=== PATIENT | female | born 1955 | race Caucasian/White ===

== ENCOUNTER 2016-10-05 18:32 | Inpatient (IN) | END 2016-10-19 19:40 | disposition home health service (06) | DRG 854 | DX: A41.9 Sepsis, unspecified organism (principal); Z68.43 Body mass index [BMI] 50.0-59.9, adult; N17.9 Acute kidney failure, unspecified; D69.6 Thrombocytopenia, unspecified; E66.01 Morbid (severe) obesity due to excess calories; J44.9 Chronic obstructive pulmonary disease, unspecified; N76.89 Other specified inflammation of vagina and vulva; E11.9 Type 2 diabetes mellitus without complications; I10 Essential (primary) hypertension; Z88.0 Allergy status to penicillin; N64.4 Mastodynia ==

== ENCOUNTER 2016-10-24 15:22 | Inpatient (IN) | payer OTHER ==
[~2016-10-24] VITALS: Ht 157.5 cm; Wt 138.2 kg
[~2016-10-24 15:22] MED LIST: ASPI-664 PO; DAK125 IRR; DOCU-144 PO; ERTA1VIA IV; ESOM40CA PO; FAMO20TA18 PO; LACTINEX PO; LORA-444 PO; LOSA25TA2 PO; METF500T4 PO; MULTI PO; ORPH100T PO; OXYC-284 PO; SENN-53 PO; VANC1.257 IV; Vancomycin Iv Per Pharmacy XX; ZINC220C5 PO
[2016-10-24] MEDS ORDERED: morphine 4 MG/ML VIAL IV STA (16:25)
[2016-10-24] MEDS ORDERED: ONDANSETRON 4 MG INJ IV STA (16:25)
[2016-10-24] MEDS ORDERED: VANCOMYCIN 1 GM (PMX) 250 ML IVPB ONE (16:30)
[2016-10-24] MEDS ORDERED: ERTAPENEM SODIUM 1 GM in SOD CHLORIDE 0.9% 100 ML IVPB ONE (16:30)
[2016-10-24 16:34] LABS: BASOPHILS % 0.3 % (0.0-2.0); EOSINOPHILS # 0.4 10^3/ul (0.0-0.5); EOSINOPHILS % 6.2 % (0.0-7.0); HEMATOCRIT 28.8 % (37.0-47.0); HEMOGLOBIN 9.9 g/dl (12.0-16.0); LYMPHOCYTES # 1.2 10^3/ul (0.8-2.9); LYMPHOCYTES % 21.4 % (15.0-51.0); MEAN CORPUSCULAR HEMOGLOBIN 29.6 pg (29.0-33.0); MEAN CORPUSCULAR HGB CONC 34.5 g/dl (32.0-37.0); MEAN CORPUSCULAR VOLUME 85.9 fl (82.0-101.0); MEAN PLATELET VOLUME 7.4 fl (7.4-10.4); MONOCYTE # 0.4 10^3/ul (0.3-0.9); NEUTROPHIL # 3.8 10^3/ul (1.6-7.5); NEUTROPHILS % 65.1 % (39.0-77.0); PLATELET COUNT 94 10^3/UL (140-440); RED BLOOD COUNT 3.35 10^6/ul (4.20-5.40); RED CELL DISTRIBUTION WIDTH 16.4 % (11.5-14.5); UNCORRECTED WBC 5.8 10^3/ul (4.8-10.8); WHITE BLOOD COUNT 5.8 10^3/ul (4.8-10.8)
--- NOTE | 2016-10-24 16:37 | RADRPT ---
PROCEDURE: Chest x-ray CLINICAL INDICATION: Shortness of breath TECHNIQUE: Chest single view COMPARISON: 10/14/2016 FINDINGS: The heart is normal in size. The pulmonary vessels are normal in caliber. The lungs are clear. Th e costophrenic angles are sharp. The visualized bony thorax is unremarkable. As before there is lef t arm PICC line with tip in the SVC. IMPRESSION: No acute cardiopulmonary disease. Left arm PICC line RPTAT: HH .Lalit Scales MD, Date Time Electronically viewed and signed by .Lalit Scales MD, on 10/24/2016 16:36 .W/
[2016-10-24 16:39] LABS: CONDITION 1; LH ANALYZER COMMENTS 1
[2016-10-24 16:42] LABS: ALBUMIN 2.8 g/dl (3.3-4.9)
[2016-10-24 16:43] LABS: INR 1.19; PROTIME 15.2 Sec (12.2-14.2); PT RATIO 1.2
[2016-10-24 16:44] LABS: PARTIAL THROMBOPLASTIN TIME 33.8 Sec (25.0-35.0)
[2016-10-24 16:45] LABS: ALBUMIN/GLOBULIN RATIO 0.7; BILIRUBIN,INDIRECT 0.3 mg/dl (0-1.1); BILIRUBIN,TOTAL 0.3 mg/dl (0.2-1.3); CREATININE 0.48 mg/dl (0.44-1.00); TOTAL PROTEIN 6.8 g/dl (6.1-8.1)
[2016-10-24 16:46] LABS: CALCIUM 8.5 mg/dl (8.4-10.2)
[2016-10-24 16:50] LABS: ADD UMIC YES; URINE BILIRUBIN (Dip) NEGATIVE (NEGATIVE); URINE BLOOD (Dip) 3+ (NEGATIVE); URINE COLOR YELLOW (YELLOW); URINE GLUCOSE (Dip) NEGATIVE (NEGATIVE); URINE KETONES (Dip) TRACE (NEGATIVE); URINE LEUKOCYTE ESTERASE (Dip) 1+ (NEGATIVE); URINE NITRITE (Dip) NEGATIVE (NEGATIVE); URINE TOTAL PROTEIN (Dip) 2+ (NEGATIVE); URINE UROBILINOGEN (Dip) 1.0 E.U./dL (0.1-1.0)
[2016-10-24 17:06] LABS: SQUAMOUS EPITHELIAL CELL,UR RARE; URINE RBCS >50 /HPF (0)
--- NOTE | 2016-10-24 17:14 | ERA ---
ER Documentation Chief Complaint Date/Time DATE: 10/24/16 TIME: 17:06 Chief Complaint left buttocks wound check, draining and painful. no recent fevers. HPI This is a 61-year-old female with a known history of hypertension, diabetes mellitus type 2 any recent history of Damián's gangrene of the left perineum that required incision and drainage with extensive debridement performed on October 06, 2016 at [facility]. The patient had been discharged on October 20, 2016 and transferred to [facility] for rehabilitation. The patient has a PICC line in place and had been receiving vancomycin and Invanz. The patient stated she became very upset with the [facility] and [facility] and therefore signed AMA 48 hours prior to arrival. She states she has not received any antibiotics since that time. She has had an indwelling catheter in place which she states has not been changed since her discharge from [facility]. She stated she has noticed very foul-smelling urine present in her catheter bag. She states he had no shortness of breath at rest or exertion. She is complaining of mild calf tenderness but stated she did not notice any swelling. Her sister indicates that she noticed some pustular drainage from the surgical incision site. She is also complaining of pain over the surgical incision site and no analgesic medication has been taken prior to arrival. ROS All systems reviewed and are negative except as per history of present illness. Medications Home Meds Active Scripts Aspirin* (Aspirin* EC) 81 Mg Tablet.dr, 81 MG PO DAILY for 30 Days, TAB Prov:EMELY THORNTON. 10/19/16 Zinc Sulfate* (Zinc Sulfate*) 220 Mg Cap, 220 MG PO DAILY for 30 Days, CAP Prov:EMELY THORNTON. 10/19/16 Multivitamins* (Theragran*) 1 Tab Tab, 1 TAB PO DAILY for 30 Days, TAB 1 Refill Prov:EMELY THORNTON. 10/19/16 Lactobacillus Acidophilus* (Lactinex*) 1 Tab Chew, 1 TAB PO BID for 30 Days, TAB Prov:EMELY THORNTON. 10/19/16 Docusate Sodium* (Colace*) 100 Mg Capsule, 100 MG PO Q12 for 30 Days, CAP Prov:EMELY THORNTON. 10/19/16 Famotidine* (Famotidine*) 20 Mg Tablet, 20 MG PO BID for 30 Days, TAB Prov:EMELY THORNTON. 10/19/16 Losartan Potassium* (Cozaar*) 25 Mg Tablet, 25 MG PO DAILY for 30 Days, TAB 1 Refill Prov:EMELY THORNTON. 10/19/16 Sennosides* (Senna Lax*) 8.6 Mg Tablet, 2 TAB PO BID for 30 Days, TAB 1 Refill Prov:EMELY THORNTON. 10/19/16 Reported Medications Metformin* (Glucophage*) 500 Mg Tab, 500 MG PO BID, TAB 03/21/15 Lorazepam* (Ativan*) 2 Mg Tablet, 2 MG PO BID Y for ANXIETY, TAB 03/21/15 Esomeprazole Mag Trihydrate (Nexium) 40 Mg Capsule.dr, 40 MG PO DAILY, CAP 03/21/15 Discontinued Reported Medications Oxycodone Hcl-Acetaminophen* (Percocet*) 10-325 Mg Tablet, 1 TAB PO Q4H Y for PAIN, TAB 03/21/15 Azithromycin* (Azithromycin*) 250 Mg Tablet, 250 MG PO DAILY, #4 TAB 03/21/15 Discontinued Scripts Ertapenem Sodium (Invanz) 1 Gm Vial.port, 1 GM IV DAILY for 29 Days Prov:EMELY THORNTON. 10/19/16 Vancomycin/0.9 % Sod Chloride (Vanco 1.25 gm/250 ml-0.9% NaCl) 1.25 Gm/250 Ml Plast..bag, 1.25 GM IV Q12H for 29 Days Prov:EMELY THORNTONSugar 10/19/16 Sodium Hypochlorite (Dakin's (1/4 Strength)) 473 Ml Irrig.soln, 1 APPLIC IRR DAILY for 30 Days Prov:EMELY THORNTONSugar 10/19/16 [Vancomycin Iv Per Pharmacy] 1 EA EACH No Conflict Check, 0 EA XX .PER PROTOCOL for 29 Days Prov:EMELY THORNTON. 10/19/16 Orphenadrine Citrate (Norflex) 100 Mg Tablet.sa, 100 MG PO BID, #6 TAB.SA Prov:CHRISTA MALLORY 03/22/15 Phenazopyridine Hcl* (Pyridium*) 100 Mg Tab, 100 MG PO TID, #6 TAB Prov:CHRISTA MALLORY 03/22/15 Tramadol HCl (Tramadol HCl) 50 Mg Tab, 50 MG PO Q4 Y for PAIN, #6 TAB Prov:CHRISTA MALLORY 03/22/15 Ciprofloxacin Hcl* (Ciprofloxacin Hcl*) 500 Mg Tablet, 500 MG PO BID for 7 Days , TAB Prov:CHRISTA MALLORY 03/22/15 Allergies Allergies: Coded Allergies: Penicillins (Verified Allergy, Severe, UNABLE TO BREATHE, 10/24/16) avocado (Verified Allergy, Severe, UNABLE TO BREATHE, 10/24/16) cephalexin (Verified Allergy, Severe, UNABLE TO BREATH, 10/24/16) Shellfish (Verified Allergy, Mild, 10/24/16) ampicillin (Verified Allergy, Unknown, 10/24/16) PMhx/Soc History of Surgery: Yes (failed lap band) Hx Neurological Disorder: No Hx Respiratory Disorders: Yes (asthma) Hx Cardiac Disorders: Yes (htn) Hx Psychiatric Problems: No Hx Miscellaneous Medical Probl: Yes (obesity) Hx Alcohol Use: No Hx Substance Use: No Hx Tobacco Use: No Smoking Status: Never smoker Physical Exam Vitals Vital Signs Date Time Temp Pulse Resp B/P Pulse Ox O2 Delivery O2 Flow Rate FiO2 10/24/16 16:43 78 20 160/78 99 Room Air 10/24/16 15:25 98.6 100 20 163/115 98 Physical Exam Constitutional:Well-developed. Well-nourished. HEENT:Normocephalic. Atraumatic.Pupils were equal round reactive to light. Moist mucous membranes.No tonsillar exudates. Neck: No nuchal rigidity. No lymphadenopathy. No posterior cervical spine tenderness or step-offs. Respiratory: Not using accessory muscles of respiration.Lungs were clear to auscultation bilaterally. No rhonchi. No rales. No wheezing. Cardiovascular: Regular rate regular rhythm.No murmurs. No rubs were appreciated.S1, S2 normal. Distal pulses are palpable 2+ bilaterally. GI: Abdomen was obese so exam is limited due to body habitus abdomen was soft. Nontender. Non Distended. No pulsatile abdominal masses or bruits. No rebound. No guarding. Bowel sounds were present and normal. : Mauricio catheter is in place. Foul-smelling urine present within the Mauricio catheter bag Muscle skeletal: Full range of motion of both the upper and lower extremities bilaterally.Normal muscle tone. Left calf tenderness with no asymmetrical calf swelling. Skin: No petechia, no purpura. No lesions on the palms or the soles of the feet. No maculopapular rash. Purulent drainage over the surgical incision site which was roughly 3 cm in diameter that extended from the left buttock to the left labia and top of the pubis which had previously been debrided. There is no necrosis. There is no surrounding subcutaneous emphysema. Pain was not out of proportion to physical exam. NEURO: Patient was alert, awake, orientated x3.No facial droop. Gait observed and normal with no ataxia.Speech had regular rate and rhythm. No focal neurological deficits. Result Diagram: 10/24/16 1615 Results 24 hrs Laboratory Tests Test 10/24/16 16:15 Activated Partial Thromboplast Time 33.8Sec Basophils # 0.010^3/ul Basophils % 0.3% Blood Morphology Comment Eosinophils # 0.410^3/ul Eosinophils % 6.2% Hematocrit 28.8% Hemoglobin 9.9g/dl INR International Normalized Ratio 1.19 Lymphocytes # 1.210^3/ul Lymphocytes % 21.4% Mean Corpuscular Hemoglobin 29.6pg Mean Corpuscular Hemoglobin Concent 34.5g/dl Mean Corpuscular Volume 85.9fl Mean Platelet Volume 7.4fl Monocytes # 0.410^3/ul Monocytes % 7.0% Neutrophils # 3.810^3/ul Neutrophils % 65.1% Nucleated Red Blood Cells # 0.010^3/ul Nucleated Red Blood Cells % 0.0/100WBC Platelet Count 9410^3/UL Prothrombin Time 15.2Sec Prothrombin Time Ratio 1.2 Red Blood Count 3.3510^6/ul Red Cell Distribution Width 16.4% Urine Bilirubin NEGATIVE Urine Clarity SLIGHTLY CLOUDY Urine Color YELLOW Urine Glucose NEGATIVE% Urine Hemoglobin 3+ Urine Ketones TRACE Urine Leukocyte Esterase 1+ Urine Microscopic RBC Pending Urine Microscopic WBC Pending Urine Nitrite NEGATIVE Urine Specific [place] 1.020 Urine Total Protein 2+ Urine Urobilinogen 1.0 E.U./dL Urine pH 6.5 White Blood Count 5.810^3/ul Current Medications Medications (Trade) Dose Ordered Sig/Maryse Route PRN Reason Start Time Stop Time Status Last Admin Dose Admin Vancomycin HCl 250 ml @ 125 mls/hr ONCE ONCE IVPB 10/24/16 16:30 10/24/16 18:29 Ertapenem/Sodium Chloride (Invanz/NS) 100 ml @ 200 mls/hr ONCE ONCE IVPB 10/24/16 16:30 10/24/16 16:59 DC 10/24/16 16:53 Morphine Sulfate (morphine) 4 mg ONCE STAT IV 10/24/16 16:25 10/24/16 16:26 DC 10/24/16 16:35 Ondansetron HCl (Zofran Inj) 4 mg ONCE STAT IV 10/24/16 16:25 10/24/16 16:26 DC 10/24/16 16:35 Ondansetron HCl (Zofran Inj) 4 mg BRIDGE ORDER PRN IV NAUSEA AND/OR VOMITING 10/24/16 17:30 10/25/16 17:29 Acetaminophen (Tylenol Tab) 650 mg ER BRIDGE PRN PO MILD PAIN/FEVER 10/24/16 17:30 10/25/16 17:29 Procedures/MDM The patient presented to the emergency department with a spreading erythematous superficial infection of the skin and subcutaneous tissues after previous incision and drainage with extensive debridement that had been performed roughly 2 weeks prior to arrival. The patient had been placed on antibiotics for 4-6 weeks but has not been taking these for the past 48 hours. However, my differential diagnosis included but was not limited to necrotizing fasciitis, lymphangitis, thrombophlebitis, deep vein thrombosis, allergic reaction, neoplasm, gout or abscess. Predisposing factors of the progressive spread of erythema, warmth, pain and tenderness was considered such as lymphedema, tinea pedis, open wounds, prior trauma or surgery, pre-existing skin lesion (furuncle), retained foreign body, injection drug use or vascular or immune compromise. The patient was placed on antibiotics to cover Staphylococcus aureus, including resistant strains such as community-acquired methicillin-resistant S. aureus and was given vancomycin and Invanz as that is what her cultures as stated she was sensitive to from her previous admission. For analgesic control the patient received intravenous morphine and Zofran. She also had a urinary tract infection. The PICC line site did not show any evidence of overlying infection as this was clean dry and intact in the left upper extremity. The patient will be admitted in serious condition under the care of the hospitalist Dr. Thornton to the medical surgical floor with an anticipated stay of greater than 2 midnights Departure Diagnosis: Primary Impression: Postoperative infection Additional Impression: Urinary tract infection GILDARDO ARTHUR Oct 24, 2016 17:14
--- NOTE | 2016-10-24 17:18 | RADRPT ---
PROCEDURE: US Lower extremity Venous. CLINICAL INDICATION: Pain and swelling TECHNIQUE: Multiple sonographic images of bilateral lower extremity deep venous system was obtaine d utilizing grayscale, color-flow, compressive sonography and doppler imaging with augmentation. Th e images were reviewed on a PACS workstation. COMPARISON: None. FINDINGS: There is normal compressibility and flow within the bilateral common femoral, deep femoral, superfic ial femoral, posterior tibial, left peroneal and popliteal veins. The right peroneal vein was not v isualized. IMPRESSION: No sonographic evidence for deep venous thrombosis. RPTAT:AAJJ Lucio Gaona Physician Date Time Electronically viewed and signed by Physician Brissa on 10/24/2016 17:18 JOSE/
[2016-10-24] MEDS ORDERED: ONDANSETRON 4 MG INJ IV PRN ×2 (17:30→18:00)
[2016-10-24] MEDS ORDERED: ACETAMINOPHEN 325 MG TAB PO PRN (17:30)
--- NOTE | 2016-10-24 17:43 | HP ---
Date/Time of Note Date/Time of Note DATE: 10/24/16 TIME: 17:26 Assessment/Plan VTE Prophylaxis VTE Prophylaxis Intervention: SCD's VTE Contraindication Reason: thrombocytopenia Assessment/Plan Assessment/Plan 61 yo F with Vulval Wound Infection * Patient had ernestina's gangrene which was drained 10/04/16 * She's to complete 6 weeks of abx 11/03/16 Morbid Obesity PreDM HTN: subotimal control Chronic NC anemia 2/2 Chronic disease PLAN: admit resume previous antibiotic regimen to completion Resume daily wound care ID consult / blood cultures and wound cultures Case mgt to begin arrangements for possible home health Diabetic diet / SSI / resume home regimen if appropriate and tailor therapy while in-house. pain control/ antiemetics/ antipyretics/ supportive care Further evaluation and treatment will be based on clinical course Full discussion with care team done. All questions Answered Please also see orders. Total time spent on this evaluation >35mins HPI/ROS Admit Date/Time Admit Date/Time 10/24/16 Hx of Present Illness PRESENTING COMPLAINT: infected wound HISTORY OF PRESENTING COMPLAINT: This is a 61-year-old female who was recently discharged from this facility about 4 days ago after being managed for Ernestina' s gangrene. She was discharged to group home facility for wound care as well as IV antibiotic therapy and rehabilitation. The patient returns today after leaving the [facility] by her own volition because of the poor care she received over there (in her own words), and now reinfection of her wound. The patient states her wound was never taking care of, and she wasn't given any antibiotics that she was prescribed,, as she did not get any rehabilitation. She came back to the ER when she started noticing foul-smelling discharge from her wound. ROS 12 point review if systems was done and pertinent findings are as noted. Constitutional: No febrile Eyes: no complaints Respiratory: No shortness of breath Cardiovascular: No chest pain Genitourinary: other (foul smelling discharge cynthia wound) Neurologic: No confusion, No focal-weakness, No headache PMH/Family/Social Past Medical History Ernestina gangrene growing Streptococcus viridans. Prediabetes Chronic thrombocytopenia, stable. Morbid obesity with a BMI of 52.2 on admission. Past Surgical History * recent I and D of vulval wound * Lapband Family History Significant Family History: other Social History Alcohol Use: none Smoking Status: Never smoker Drug Use: none Exam/Review of Systems Vital Signs Vitals Vital Signs Date Time Temp Pulse Resp B/P Pulse Ox O2 Delivery O2 Flow Rate FiO2 10/24/16 16:43 78 20 160/78 99 Room Air 10/24/16 15:25 98.6 Exam Exam Constitutional: alert, obese (severely), No distress Psych: No nl mood/affect (blank affect) Head: normocephalic Eyes: PERRL ENMT: mucosa pink and moist Respiratory: diminished breath sounds, No labored breathing Cardiovascular: regular rate and rhythm, No murmurs/extra sounds Gastrointestinal: other (severely obese), soft, NT , + BS Genitourinary - Female: other Extremities: No edema Neurological: no focal deficits Labs Result Diagram: 10/24/16 1615 10/24/16 1615 Medications Medications Current Medications Vancomycin HCl (Vancocin) 250 ml @ 125 mls/hr ONCE ONCE IVPB Last administered on 10/24/16t 17:20; Admin Dose 125 MLS/HR; Start 10/24/16 at 16:30 ; Stop 10/24/16 at 18:29 Procedures Procedures Laboratory Tests Test 10/24/16 16:15 Activated Partial Thromboplast Time 33.8Sec Alanine Aminotransferase (ALT/SGPT) 34IU/L Albumin 2.8g/dl Albumin/Globulin Ratio 0.70 Alkaline Phosphatase 111IU/L Anion Gap 13 Aspartate Amino Transf (AST/SGOT) 33IU/L Basophils # 0.010^3/ul Basophils % 0.3% Blood Morphology Comment Blood Urea Nitrogen 9mg/dl Calcium Level 8.5mg/dl Carbon Dioxide Level 26mmol/L Chloride Level 103mmol/L Creatinine 0.48mg/dl Direct Bilirubin 0.00mg/dl Eosinophils # 0.410^3/ul Eosinophils % 6.2% Globulin 4.00g/dl Glucose Level 112mg/dl Hematocrit 28.8% Hemoglobin 9.9g/dl INR International Normalized Ratio 1.19 Indirect Bilirubin 0.3mg/dl Lactic Acid Level 2.0mmol/L Lymphocytes # 1.210^3/ul Lymphocytes % 21.4% Mean Corpuscular Hemoglobin 29.6pg Mean Corpuscular Hemoglobin Concent 34.5g/dl Mean Corpuscular Volume 85.9fl Mean Platelet Volume 7.4fl Monocytes # 0.410^3/ul Monocytes % 7.0% Neutrophils # 3.810^3/ul Neutrophils % 65.1% Nucleated Red Blood Cells # 0.010^3/ul Nucleated Red Blood Cells % 0.0/100WBC Platelet Count 9410^3/UL Potassium Level 4.0mmol/L Prothrombin Time 15.2Sec Prothrombin Time Ratio 1.2 Red Blood Count 3.3510^6/ul Red Cell Distribution Width 16.4% Sodium Level 138mmol/L Total Bilirubin 0.3mg/dl Total Protein 6.8g/dl Urine Bilirubin NEGATIVE Urine Clarity SLIGHTLY CLOUDY Urine Color YELLOW Urine Glucose NEGATIVE% Urine Hemoglobin 3+ Urine Ketones TRACE Urine Leukocyte Esterase 1+ Urine Microscopic RBC >50/HPF Urine Microscopic WBC 0-2/HPF Urine Nitrite NEGATIVE Urine Specific [place] 1.020 Urine Squamous Epithelial Cells RARE Urine Total Protein 2+ Urine Urobilinogen 1.0 E.U./dL Urine pH 6.5 White Blood Count 5.810^3/ul ER INTERVENTIONS Medications (Trade) Dose Ordered Sig/Maryse Route PRN Reason Start Time Stop Time Status Last Admin Dose Admin Vancomycin HCl 250 ml @ 125 mls/hr ONCE ONCE IVPB 10/24/16 16:30 10/24/16 18:29 10/24/16 17:20 125 MLS/HR Ertapenem/Sodium Chloride (Invanz/NS) 100 ml @ 200 mls/hr ONCE ONCE IVPB 10/24/16 16:30 10/24/16 16:59 DC 10/24/16 16:53 200 MLS/HR Morphine Sulfate (morphine) 4 mg ONCE STAT IV 10/24/16 16:25 10/24/16 16:26 DC 10/24/16 16:35 4 MG Ondansetron HCl (Zofran Inj) 4 mg ONCE STAT IV 10/24/16 16:25 10/24/16 16:26 DC 10/24/16 16:35 4 MG Ondansetron HCl (Zofran Inj) 4 mg BRIDGE ORDER PRN IV NAUSEA AND/OR VOMITING 10/24/16 17:30 10/25/16 17:29 Acetaminophen (Tylenol Tab) 650 mg ER BRIDGE PRN PO MILD PAIN/FEVER 1/28/17 17:30 1/29/17 17:29 NORBERTOTAMEKASREE AnaSugar Oct 24, 2016 17:37
[2016-10-24] MEDS ORDERED: GLUCAGON 1 MG INJ IM PRN (18:00)
[2016-10-24] MEDS ORDERED: DEXTROSE 50% 50 ML SYRINGE IV PRN ×2 (18:00)
[2016-10-24] MEDS ORDERED: GLUCOSE GEL 15 GRAM TUBE BUCCAL PRN (18:00)
[2016-10-24] MEDS ORDERED: GLUCOSE GEL 15 GRAM TUBE PO PRN ×2 (18:00)
[2016-10-24] MEDS ORDERED: VANCOMYCIN IV PER PHARMACY XX SCH (18:00)
[2016-10-24 18:21] VITALS: BP 119/76; PULSE 93; RESP 16
[2016-10-24 18:25] VITALS: Ht 157.5 cm; Wt 138.2 kg
[2016-10-24] MEDS: metFORMIN 500 MG TAB PO SCH (18:57)
[2016-10-24] MEDS: IMIPENEM-CILAST 500MG IV (PMX) 100 ML IVPB SCH (19:00)
[2016-10-24] MEDS ORDERED: VANCOMYCIN 1 GM in NS 250 ML IVPB ONE (20:00)
[2016-10-24 20:22] VITALS: BP 116/66; RESP 19
[2016-10-24] MEDS: LACTOBACILLUS CHEW TAB PO SCH (20:35)
[2016-10-24] MEDS: DOCUSATE SODIUM 100 MG CAP PO SCH (20:35)
[2016-10-24] MEDS: FAMOTIDINE 20 MG TAB PO SCH (20:36)
[2016-10-24] MEDS: SENNA TAB PO SCH (20:36)
[2016-10-24] MEDS: INSULIN ASPART [NOVOLOG] 3 ML PEN SC SCH (21:00)
[2016-10-24] MEDS: morphine 2 MG INJ IV PRN (21:58)
[2016-10-24] MEDS ORDERED: HYDROCODONE/APAP (5/325) TAB PO PRN (22:00)
[2016-10-25] MEDS: IMIPENEM-CILAST 500MG IV (PMX) 100 ML IVPB SCH ×5 (00:10→23:56)
[2016-10-25] MEDS: LORAZEPAM 1 MG TAB PO PRN ×2 (00:10→15:55)
[2016-10-25] MEDS: VANCOMYCIN 1.5 GM in SOD CHLORIDE 0.9% 250 ML IVPB SCH ×2 (05:49→17:28)
[2016-10-25] MEDS: morphine 2 MG INJ IV PRN ×2 (07:16→12:31)
[2016-10-25] MEDS: INSULIN ASPART [NOVOLOG] 3 ML PEN SC SCH ×4 (08:00→21:00)
[2016-10-25 08:05] VITALS: BP 102/51; RESP 18
[2016-10-25] MEDS: ZINC SULFATE 220 MG CAP PO SCH (08:49)
[2016-10-25] MEDS: LACTOBACILLUS CHEW TAB PO SCH ×2 (08:49→20:59)
[2016-10-25] MEDS: SENNA TAB PO SCH ×2 (08:49→21:01)
[2016-10-25] MEDS: MULTIVITAMINS THERAPEUTIC TAB PO SCH (08:49)
[2016-10-25] MEDS: FAMOTIDINE 20 MG TAB PO SCH ×2 (08:49→20:59)
[2016-10-25] MEDS: DOCUSATE SODIUM 100 MG CAP PO SCH (08:49)
[2016-10-25] MEDS: metFORMIN 500 MG TAB PO SCH ×2 (08:49→17:34)
[2016-10-25] MEDS: ASPIRIN (EC) 81 MG TAB PO SCH (08:50)
[2016-10-25] MEDS: NYSTATIN 30 GM POWDER BTL TOP SCH ×2 (08:50→21:01)
[2016-10-25] MEDS: LOSARTAN 25 MG TAB PO SCH (08:51)
[2016-10-25 10:15] LABS: BASOPHILS % 0.4 % (0.0-2.0); EOSINOPHILS # 0.5 10^3/ul (0.0-0.5); EOSINOPHILS % 10.3 % (0.0-7.0); HEMATOCRIT 25.6 % (37.0-47.0); HEMOGLOBIN 8.8 g/dl (12.0-16.0); LYMPHOCYTES # 1.3 10^3/ul (0.8-2.9); LYMPHOCYTES % 28.9 % (15.0-51.0); MEAN CORPUSCULAR HEMOGLOBIN 29.6 pg (29.0-33.0); MEAN CORPUSCULAR HGB CONC 34.4 g/dl (32.0-37.0); MEAN CORPUSCULAR VOLUME 85.9 fl (82.0-101.0); MEAN PLATELET VOLUME 7.8 fl (7.4-10.4); MONOCYTE # 0.3 10^3/ul (0.3-0.9); NEUTROPHIL # 2.4 10^3/ul (1.6-7.5); NEUTROPHILS % 54.4 % (39.0-77.0); PLATELET COUNT 71 10^3/UL (140-440); RED BLOOD COUNT 2.98 10^6/ul (4.20-5.40); RED CELL DISTRIBUTION WIDTH 16.4 % (11.5-14.5); UNCORRECTED WBC 4.5 10^3/ul (4.8-10.8); WHITE BLOOD COUNT 4.5 10^3/ul (4.8-10.8)
[2016-10-25 10:19] LABS: POTASSIUM 3.9 mmol/L (3.5-5.1)
[2016-10-25 10:20] LABS: CONDITION 1; LH ANALYZER COMMENTS 1
[2016-10-25 10:21] LABS: CREATININE 0.46 mg/dl (0.44-1.00)
[2016-10-25 10:23] LABS: MAGNESIUM 1.5 mg/dl (1.7-2.5)
[2016-10-25] MEDS ORDERED: MAGNESIUM SULFATE 2 GM/50 ML 50 ML IVPB ONE (14:00)
[2016-10-25] MEDS ORDERED: LACTULOSE 30ML CUP PO PRN (15:00)
--- NOTE | 2016-10-25 15:21 | PN ---
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 * She's to complete 6 weeks of abx till 11/03/16 * Repeat Wound cultures growing Gm- rods Morbid Obesity PreDM HTN: Controlled Chronic NC anemia 2/2 Chronic disease Chronic back pain: on chronic opioids at home Constipation : likely 2/2 opioid use PLAN: Continue antibiotic regimen to completion Add lactulose to current regimen to help with constipation Resume daily wound care with darkins solution f/u ID consult / blood cultures and wound cultures Case mgt to begin arrangements for Home health for IV abx and wound care Continue Calorie controlled Diabetic diet / SSI and current hypoglycemic regimen pain control/ antiemetics/ antipyretics/ supportive care Will also get pain mgt consult for chronic pain. Subjective 24 Hr Interval Summary Free Text/Dictation and constipation Patient seen and examined. c/o inadequate pain control Usually is on Oxycontin at home Exam/Review of Systems Vital Signs Vitals Vital Signs Date Time Temp Pulse Resp B/P Pulse Ox O2 Delivery O2 Flow Rate FiO2 10/25/16 08:05 98.6 77 18 102/51 97 10/24/16 18:21 Room Air Intake and Output 10/24/16 10/24/16 10/25/16 15:00 23:00 07:00 Intake Total 800 ml Output Total 1700 ml Balance -900 ml Exam Constitutional: alert, obese, oriented Psych: nl mood/affect Head: normocephalic Eyes: PERRL ENMT: mucosa pink and moist Neck: supple Respiratory: clear to auscultation Cardiovascular: regular rate and rhythm Gastrointestinal: bowel sounds, non-tender, soft Genitourinary - Female: other (large vulval wound extending to anus, looks pink , and clean) Extremities: No edema Neurological: nl mental status Results Result Diagram: 10/25/16 0925 10/25/16 0825 Results 24 hrs Laboratory Tests Test 10/24/16 16:15 10/24/16 18:16 10/24/16 20:33 10/25/16 04:22 Activated Partial Thromboplast Time 33.8 Alanine Aminotransferase (ALT/SGPT) 34 Albumin 2.8 L Albumin/Globulin Ratio 0.70 Alkaline Phosphatase 111 Anion Gap 13 Aspartate Amino Transf (AST/SGOT) 33 Basophils # 0.0 Basophils % 0.3 Blood Morphology Comment Blood Urea Nitrogen 9 Calcium Level 8.5 Carbon Dioxide Level 26 Chloride Level 103 Creatinine 0.48 Direct Bilirubin 0.00 Eosinophils # 0.4 Eosinophils % 6.2 Globulin 4.00 H Glucose Level 112 Hematocrit 28.8 L Hemoglobin 9.9 L INR International Normalized Ratio 1.19 Indirect Bilirubin 0.3 Lactic Acid Level 2.0 Lymphocytes # 1.2 Lymphocytes % 21.4 Mean Corpuscular Hemoglobin 29.6 Mean Corpuscular Hemoglobin Concent 34.5 Mean Corpuscular Volume 85.9 Mean Platelet Volume 7.4 Monocytes # 0.4 Monocytes % 7.0 Neutrophils # 3.8 Neutrophils % 65.1 Nucleated Red Blood Cells # 0.0 Nucleated Red Blood Cells % 0.0 Platelet Count 94 L Potassium Level 4.0 Prothrombin Time 15.2 H Prothrombin Time Ratio 1.2 Red Blood Count 3.35 L Red Cell Distribution Width 16.4 H Sodium Level 138 Total Bilirubin 0.3 Total Protein 6.8 Urine Bilirubin NEGATIVE Urine Clarity SLIGHTLY CLOUDY Urine Color YELLOW Urine Glucose NEGATIVE Urine Hemoglobin 3+ H Urine Ketones TRACE H Urine Leukocyte Esterase 1+ H Urine Microscopic RBC >50 Urine Microscopic WBC 0-2 Urine Nitrite NEGATIVE Urine Specific [place] 1.020 Urine Squamous Epithelial Cells RARE Urine Total Protein 2+ H Urine Urobilinogen 1.0 E.U./dL Urine pH 6.5 White Blood Count 5.8 Bedside Glucose 92 103 90 Test 10/25/16 07:55 10/25/16 08:25 10/25/16 09:25 10/25/16 11:50 Bedside Glucose 109 129 Anion Gap 11 Blood Urea Nitrogen 8 Calcium Level 8.0 L Carbon Dioxide Level 26 Chloride Level 104 Creatinine 0.46 Glucose Level 122 Magnesium Level 1.5 L Potassium Level 3.9 Sodium Level 137 Basophils # 0.0 Basophils % 0.4 Blood Morphology Comment Eosinophils # 0.5 Eosinophils % 10.3 H Hematocrit 25.6 L Hemoglobin 8.8 L Lymphocytes # 1.3 Lymphocytes % 28.9 Mean Corpuscular Hemoglobin 29.6 Mean Corpuscular Hemoglobin Concent 34.4 Mean Corpuscular Volume 85.9 Mean Platelet Volume 7.8 Monocytes # 0.3 Monocytes % 6.0 Neutrophils # 2.4 Neutrophils % 54.4 Nucleated Red Blood Cells # 0.0 Nucleated Red Blood Cells % 0.0 Platelet Count 71 #L Red Blood Count 2.98 L Red Cell Distribution Width 16.4 H White Blood Count 4.5 #L Medications Medications Current Medications Aspirin (Halfprin) 81 mg DAILY PO Last administered on 10/25/16 08:50; Admin Dose 81 MG; Start 10/25/16 at 09:00 Famotidine (Pepcid) 20 mg BID PO Last administered on 10/25/16 08:49; Admin Dose 20 MG; Start 10/24/16 at 21:00 Lactobacillus Acidoph/Bulgaricus (Floranex) 1 tab BID PO Last administered on 08:49; Admin Dose 1 TAB; Start 10/24/16 at 21:00 Lorazepam (Ativan) 2 mg BID PRN PO ANXIETY Last administered on 10/25/16 00:10 ; Admin Dose 2 MG; Start 10/24/16 at 18:00 Losartan Potassium (Cozaar) 25 mg DAILY PO Last administered on 10/25/16 08:51 ; Admin Dose 25 MG; Start 10/25/16 at 09:00 Multivitamins Therapeutic (Theragran) 1 tab DAILY PO Last administered on 08:49; Admin Dose 1 TAB; Start 10/25/16 at 09:00 Senna (Senokot) 2 tab BID PO Last administered on 10/25/16 08:49; Admin Dose 2 TAB; Start 10/24/16 at 21:00 Zinc Sulfate 220 mg 220 mg DAILY PO Last administered on 10/25/16 08:49; Admin Dose 220 MG; Start 10/25/16 at 09:00 Imipenem/ Cilastatin Sodium (Primaxin 500 Mg/ 100 ml (Pmx)) 100 ml @ 100 mls/ hr Q6 IVPB Last administered on 10/25/16 12:14; Admin Dose 100 MLS/HR; Start 10/24/16 at 18:00; Stop 11/03/16 at 21:00 Ondansetron HCl (Zofran Inj) 4 mg Q6H PRN IV NAUSEA AND/OR VOMITING; Start at 18:00 Miscellaneous Information 1 ea NOTE XX ; Start 10/24/16 at 18:00 Glucose (Glutose) 15 gm Q15M PRN PO DECREASED GLUCOSE; Start 10/24/16 at 18:00 Glucose (Glutose) 22.5 gm Q15M PRN PO DECREASED GLUCOSE; Start 10/24/16 at 18: 00 Dextrose (D50w Syringe) 25 ml Q15M PRN IV DECREASED GLUCOSE; Start 10/24/16 at 18:00 Dextrose (D50w Syringe) 50 ml Q15M PRN IV DECREASED GLUCOSE; Start 10/24/16 at 18:00 Glucagon (Glucagen) 1 mg Q15M PRN IM DECREASED GLUCOSE; Start 10/24/16 at 18:00 Glucose 15 gm 15 gm Q15M PRN BUCCAL DECREASED GLUCOSE; Start 10/24/16 at 18:00 Vancomycin HCl/ Sodium Chloride (Vancocin/NS) 250 ml @ 83.333 mls/ hr Q12H IVPB Last administered on 10/25/16 05:49; Admin Dose 83.333 MLS/HR; Start at 05:00 Acetaminophen/ Hydrocodone Bitart ([place] (5/325)) 1 tab Q6H PRN PO pain Last administered on 10/25/16 08:51; Admin Dose 1 TAB; Start 10/24/16 at 22:00 Nystatin 1 applic 1 applic BID TOP Last administered on 10/25/16 08:50; Admin Dose 1 APPLIC; Start 10/25/16 at 09:00 Magnesium Sulfate (Magnesium Sulfate 2 Gm/50 ml) 50 ml @ 25 mls/hr ONCE ONCE IVPB Last administered on 10/25/16 15:02; Admin Dose 25 MLS/HR; Start at 14:00; Stop 10/25/16 at 15:59 Docusate Sodium (Colace) 250 mg DAILY PO ; Start 10/26/16 at 09:00 Oxycodone/ Acetaminophen (Percocet (5/ 325)) 1 tab Q4H PRN PO PAIN; Start 10/25 at 15:00 Lactulose (Enulose) 20 gm DAILY PO ; Start 10/25/16 at 15:00 Lactulose (Enulose) 20 gm Q6H PRN PO CONSTIPATION; Start 10/25/16 at 15:00 Hydromorphone HCl (Dilaudid) 0.5 mg Q4H PRN IV PAIN; Start 10/25/16 at 15:00 EMELY THORNTON Oct 25, 2016 15:21
[2016-10-25] MEDS: LACTULOSE 30ML CUP PO SCH (15:55)
--- NOTE | 2016-10-25 17:10 | CONS ---
Date/Time of Note Date/Time of Note DATE: 10/25/16 TIME: 16:59 Assessment/Plan Assessment/Plan Chief Complaint/Hosp Course ID FOLLOW UP NOTE => * Patient seen by Dr. Guerin ID Team in consultation on recent admission, returns for same diagnosis = Non-healing wound. * HPI: s/p wound debridement for Damián's gangrene w/(+)Wound Vac last admission * Wound Cx 10/06/16 grew: STREP NUTRITIONALLY VARIANT 24H INTERVAL SUMMARY TOTAL ABX DAY #1 => Vanco IV + Primaxin (started 10/24 pm) => Onboard 24H * Awake, alert, responsive - coping well * No fevers/chills/no N/V/Diarrhea - no evidence sepsis * MICRO: BCx (-)24H, Wound (+)GNR ->Pending * Chart reviewed Specimen: [id number] Status: Resulted Anthony: 10/24/16 Rcvd: 10/24 Source: BUTTOCK Sp Descrip: Procedure Result Microbiology GRAM STAIN Final POLYMORPH. LEUKOCYTE 1+ GRAM NEGATIVE RODS 1+ WOUND CULTURE Preliminary Organism 1 GRAM NEGATIVE YAKELIN QUANTITY 1+ Anthony: 10/06/16 Rcvd: 10/06/1623 ource: PERINEUM Sp Descrip: Microbiology WOUND CULTURE Final Organism 1 STREP NUTRITIONALLY VARIANT QUANTITY 1+ STREP NUTR Zone Size RX --------- --- * AMPICILLIN S * CEFAZOLIN S * CEFOTAXIME S * CIPROFLOXACIN R * CLINDAMYCIN R * ERYTHROMYCIN R * PENICILLIN S * VANCOMYCIN S PHYSICAL EXAMINATION: GENERAL: 60 yo F HEENT: Unremarkable NECK: Supple, trachea midline. CHEST: Rise symmetrical without dyspnea HEART: RRR ABDOMEN: Soft, obese EXTREMITIES: Warm WOUND: DSG C/D/I ID ASSESSMENT: 60 yo super morbid obese [BMI>59] F admit with: 1. Systemic inflammatory response syndrome with leukocytosis and low grade fevers secondary to #2. 2. Left perineum Damián gangrene, status post incision and drainage with extensive debridement last admission w/Wound Vac * 10/24/16 Wound Cx: GNR preliminary = pending final * 10/06/16 Wound Cx: STREP NUTRITIONALLY VARIANT 3. COPD: Asthma - stable 4. Diabetes. 5. Hypertension. ABX ALLERGY TO PENICILLIN AND KEFLEX CURRENT ABX: #1 => Vanco IV + Primaxin ID RECOMMENDATIONS: CONTINUE Current ABX -> Await final results wound Cx pending * Per LITERATURE REVIEW: Nutritional Variant Strep is difficult to treat -- recommend treat for 4 weeks with Vanco + Primaxin * *4-week therapy recommended for patients with symptoms <3 months in duration; 6-week therapy recommended for patients with symptoms greater than 3 months in duration plus * Vancomycin therapy is recommended for patients allergic to beta-lactams Problems: Consultation Date/Type/Reason Admit Date/Time Oct 24, 2016 at 17:03 Initial Consult Date Exam/Review of Systems Vital Signs Vitals Vital Signs Date Time Temp Pulse Resp B/P Pulse Ox O2 Delivery O2 Flow Rate FiO2 10/25/16 08:05 98.6 77 18 102/51 97 10/24/16 18:21 Room Air Intake and Output 1/10/24/16 10/25/16 15:00 23:00 07:00 Intake Total 800 ml Output Total 1700 ml Balance -900 ml Results Result Diagram: 10/25/16 0925 10/25/16 0825 Results 24 hrs Laboratory Tests Test 10/24/16 18:16 10/24/16 20:33 10/25/16 04:22 10/25/16 07:55 Bedside Glucose 92 103 90 109 Test 10/25/16 08:25 10/25/16 09:25 10/25/16 11:50 Anion Gap 11 Blood Urea Nitrogen 8 Calcium Level 8.0 L Carbon Dioxide Level 26 Chloride Level 104 Creatinine 0.46 Glucose Level 122 Magnesium Level 1.5 L Potassium Level 3.9 Sodium Level 137 Basophils # 0.0 Basophils % 0.4 Blood Morphology Comment Eosinophils # 0.5 Eosinophils % 10.3 H Hematocrit 25.6 L Hemoglobin 8.8 L Lymphocytes # 1.3 Lymphocytes % 28.9 Mean Corpuscular Hemoglobin 29.6 Mean Corpuscular Hemoglobin Concent 34.4 Mean Corpuscular Volume 85.9 Mean Platelet Volume 7.8 Monocytes # 0.3 Monocytes % 6.0 Neutrophils # 2.4 Neutrophils % 54.4 Nucleated Red Blood Cells # 0.0 Nucleated Red Blood Cells % 0.0 Platelet Count 71 #L Red Blood Count 2.98 L Red Cell Distribution Width 16.4 H White Blood Count 4.5 #L Bedside Glucose 129 Medications Medications Current Medications Aspirin (Halfprin) 81 mg DAILY PO Last administered on 10/25/16 08:50; Admin Dose 81 MG; Start 10/25/16 at 09:00 Famotidine (Pepcid) 20 mg BID PO Last administered on 10/25/16 08:49; Admin Dose 20 MG; Start 10/24/16 at 21:00 Lactobacillus Acidoph/Bulgaricus (Floranex) 1 tab BID PO Last administered on 08:49; Admin Dose 1 TAB; Start 10/24/16 at 21:00 Lorazepam (Ativan) 2 mg BID PRN PO ANXIETY Last administered on 10/25/16 15:55 ; Admin Dose 2 MG; Start 10/24/16 at 18:00 Losartan Potassium (Cozaar) 25 mg DAILY PO Last administered on 10/25/16 08:51 ; Admin Dose 25 MG; Start 10/25/16 at 09:00 Multivitamins Therapeutic (Theragran) 1 tab DAILY PO Last administered on 08:49; Admin Dose 1 TAB; Start 10/25/16 at 09:00 Senna (Senokot) 2 tab BID PO Last administered on 10/25/16 08:49; Admin Dose 2 TAB; Start 10/24/16 at 21:00 Zinc Sulfate 220 mg 220 mg DAILY PO Last administered on 10/25/16 08:49; Admin Dose 220 MG; Start 10/25/16 at 09:00 Imipenem/ Cilastatin Sodium (Primaxin 500 Mg/ 100 ml (Pmx)) 100 ml @ 100 mls/ hr Q6 IVPB Last administered on 10/25/16 12:14; Admin Dose 100 MLS/HR; Start 10/24/16 at 18:00; Stop 11/03/16 at 21:00 Ondansetron HCl (Zofran Inj) 4 mg Q6H PRN IV NAUSEA AND/OR VOMITING; Start at 18:00 Miscellaneous Information 1 ea NOTE XX ; Start 10/24/16 at 18:00 Glucose (Glutose) 15 gm Q15M PRN PO DECREASED GLUCOSE; Start 10/24/16 at 18:00 Glucose (Glutose) 22.5 gm Q15M PRN PO DECREASED GLUCOSE; Start 10/24/16 at 18: 00 Dextrose (D50w Syringe) 25 ml Q15M PRN IV DECREASED GLUCOSE; Start 10/24/16 at 18:00 Dextrose (D50w Syringe) 50 ml Q15M PRN IV DECREASED GLUCOSE; Start 10/24/16 at 18:00 Glucagon (Glucagen) 1 mg Q15M PRN IM DECREASED GLUCOSE; Start 10/24/16 at 18:00 Glucose 15 gm 15 gm Q15M PRN BUCCAL DECREASED GLUCOSE; Start 10/24/16 at 18:00 Vancomycin HCl/ Sodium Chloride (Vancocin/NS) 250 ml @ 83.333 mls/ hr Q12H IVPB Last administered on 10/25/16 05:49; Admin Dose 83.333 MLS/HR; Start at 05:00 Acetaminophen/ Hydrocodone Bitart ([place] (5/325)) 1 tab Q6H PRN PO pain Last administered on 10/25/16 08:51; Admin Dose 1 TAB; Start 10/24/16 at 22:00 Nystatin (Nystatin Powder) 1 applic BID TOP Last administered on 10/25/16 08: 50; Admin Dose 1 APPLIC; Start 10/25/16 at 09:00 Docusate Sodium (Colace) 250 mg DAILY PO ; Start 10/26/16 at 09:00 Oxycodone/ Acetaminophen (Percocet (5/ 325)) 1 tab Q4H PRN PO PAIN; Start 10/25 at 15:00 Lactulose (Enulose) 20 gm DAILY PO Last administered on 10/25/16 15:55; Admin Dose 20 GM; Start 10/25/16 at 15:00 Lactulose (Enulose) 20 gm Q6H PRN PO CONSTIPATION; Start 10/25/16 at 15:00 Hydromorphone HCl (Dilaudid) 0.5 mg Q4H PRN IV PAIN; Start 10/25/16 at 15:00 MELANIA JAQUEZ NP Oct 25, 2016 17:10
[2016-10-25 19:58] VITALS: BP 112/60; RESP 18
[2016-10-25] MEDS: SODIUM HYPOCHLORITE 1/40% 1L IRRIG IRR SCH (21:01)
[2016-10-26] MEDS: IMIPENEM-CILAST 500MG IV (PMX) 100 ML IVPB SCH (05:06)
[2016-10-26] MEDS: HYDROmorphONE 1 MG/ML SYG IV PRN ×4 (05:12→21:08)
[2016-10-26] MEDS: VANCOMYCIN 1.5 GM in SOD CHLORIDE 0.9% 250 ML IVPB SCH (06:10)
[2016-10-26] MEDS: INSULIN ASPART [NOVOLOG] 3 ML PEN SC SCH ×3 (08:00→21:00)
[2016-10-26 08:08] VITALS: BP 114/61; RESP 16
[2016-10-26] MEDS: metFORMIN 500 MG TAB PO SCH (08:27)
[2016-10-26] MEDS: FAMOTIDINE 20 MG TAB PO SCH ×2 (08:27→21:05)
[2016-10-26] MEDS: LACTOBACILLUS CHEW TAB PO SCH ×2 (08:28→21:05)
[2016-10-26] MEDS: SENNA TAB PO SCH ×2 (08:28→21:05)
[2016-10-26] MEDS: MULTIVITAMINS THERAPEUTIC TAB PO SCH (08:28)
[2016-10-26] MEDS: ZINC SULFATE 220 MG CAP PO SCH (08:28)
[2016-10-26] MEDS: OXYCODONE/ACETAMINOPHEN (5/325) TAB PO PRN ×2 (08:29→23:31)
[2016-10-26] MEDS: DOCUSATE SODIUM 250 MG CAP PO SCH (08:29)
[2016-10-26] MEDS: ASPIRIN (EC) 81 MG TAB PO SCH (08:29)
[2016-10-26] MEDS: LOSARTAN 25 MG TAB PO SCH (08:30)
[2016-10-26] MEDS: LACTULOSE 30ML CUP PO SCH (08:31)
[2016-10-26] MEDS: SODIUM HYPOCHLORITE 1/40% 1L IRRIG IRR SCH (08:32)
[2016-10-26] MEDS: NYSTATIN 30 GM POWDER BTL TOP SCH ×2 (08:32→21:08)
[2016-10-26 09:20] LABS: BASOPHILS % 0.4 % (0.0-2.0); EOSINOPHILS # 0.8 10^3/ul (0.0-0.5); EOSINOPHILS % 14.8 % (0.0-7.0); HEMOGLOBIN 9.2 g/dl (12.0-16.0); LYMPHOCYTES # 1.2 10^3/ul (0.8-2.9); LYMPHOCYTES % 22.9 % (15.0-51.0); MEAN CORPUSCULAR HEMOGLOBIN 29.2 pg (29.0-33.0); MEAN CORPUSCULAR HGB CONC 33.9 g/dl (32.0-37.0); MEAN CORPUSCULAR VOLUME 86.2 fl (82.0-101.0); MEAN PLATELET VOLUME 7.3 fl (7.4-10.4); MONOCYTE # 0.3 10^3/ul (0.3-0.9); MONOCYTES % 6.4 % (0.0-11.0); NEUTROPHIL # 2.9 10^3/ul (1.6-7.5); NEUTROPHILS % 55.5 % (39.0-77.0); PLATELET COUNT 80 10^3/UL (140-440); RED BLOOD COUNT 3.13 10^6/ul (4.20-5.40); RED CELL DISTRIBUTION WIDTH 16.2 % (11.5-14.5); UNCORRECTED WBC 5.1 10^3/ul (4.8-10.8); WHITE BLOOD COUNT 5.1 10^3/ul (4.8-10.8)
[2016-10-26 09:35] LABS: POTASSIUM 4.1 mmol/L (3.5-5.1)
[2016-10-26 09:38] LABS: CREATININE 0.52 mg/dl (0.44-1.00)
[2016-10-26 09:39] LABS: CALCIUM 8.1 mg/dl (8.4-10.2); CONDITION 1; LH ANALYZER COMMENTS 1
--- NOTE | 2016-10-26 13:29 | PN ---
DATE: 10/26/2016 SUBJECTIVE: The patient is alert, eating lunch, looks comfortable, no fevers overnight. ANTIMICROBIALS: She is on: 1. Vancomycin. 2. Imipenem. ALLERGIES: PENICILLIN AND KEFLEX PHYSICAL EXAMINATION: GENERAL: Obese, well-developed elderly woman who is awake, in no distress. HEENT: Head atraumatic, normocephalic. Sclerae anicteric. Buccal mucosa dry. NECK: Supple. CHEST: Rise symmetrical. Breath sounds clear. HEART: S1, S2. ABDOMEN: Soft, bowel tones present. EXTREMITIES: No cyanosis. ASSESSMENT 1. Damián gangrene, status post incision and drainage with wound culture growing multi-drug resis tant Acinetobacter baumannii as well as gram-negative rods. Final sensitivity pending. 2. Morbid obesity. 3. Diabetes. 4. Hypertension. 5. ALLERGY TO PENICILLIN AND KEFLEX. PLAN: We are going to discontinue imipenem. Start patient on amikacin. Change vancomycin to doxyc ycline and await final cultures, continue local wound care. Monitor renal function closely and cons ider surgical evaluation for possible repeat debridement. Dictated By: SHAWN MARIE USER SUPPORT ANALYST SUPERVISOR for ERIC LAUREN MD NI/NTS Conf#: [id number] DID#: [id number]
[2016-10-26] MEDS ORDERED: AMIKACIN IV PER PHARMACY XX SCH (13:30)
[2016-10-26] MEDS: LORAZEPAM 1 MG TAB PO PRN (13:51)
[2016-10-26] MEDS: AMIKACIN 1,000 MG in SOD CHLORIDE 0.9% 100 ML IVPB SCH (15:17)
[2016-10-26] MEDS: DIPHENHYDRAMINE 25 MG CAP PO PRN (15:51)
--- NOTE | 2016-10-26 16:05 | PN ---
Date/Time of Note Date/Time of Note DATE: 10/26/16 TIME: 15:59 Assessment/Plan VTE Prophylaxis VTE Prophylaxis Intervention: heparin Lines/Catheters IV Catheter Type (from Nrsg): PICC Line Central line still needed: Yes Urinary Cath still in place: Yes Reason Cath still needed: urinary retention Assessment/Plan Chief Complaint/Hosp Course Assessment/Plan: 61 yo F with 1. 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 She's to complete 6 weeks of abx till 11/03/16. Repeat Wound cultures growing Gm- rods - Continue antibiotic regimen to completion which includes amikacin and doxy for now - f/u ID consult / blood cultures and wound cultures - Resume daily wound care with darkins solution, wound consult 2. Morbid Obesity - PT eval 3. PreDM - Continue Calorie controlled Diabetic diet / SSI and current hypoglycemic regimen 4. HTN: Controlled 5. Chronic NC anemia 2/2 Chronic disease 6. Chronic back pain: -on chronic opioids at home - pain control/ antiemetics/ antipyretics/ supportive care 7. Constipation : likely 2/2 opioid use - lactulose to current regimen to help with constipation Problems: Subjective 24 Hr Interval Summary Free Text/Dictation Pt asking about surgery consult, otherwise no acute events overnight. Exam/Review of Systems Vital Signs Vitals Vital Signs Date Time Temp Pulse Resp B/P Pulse Ox O2 Delivery O2 Flow Rate FiO2 10/26/16 08:08 98.1 82 16 114/61 97 10/24/16 18:21 Room Air Intake and Output 10/25/16 10/25/16 10/26/16 15:00 23:00 07:00 Intake Total 350 ml 1430 ml 583.33 ml Output Total 750 ml 2030 ml Balance 350 ml 680 ml -1446.67 ml Exam Constitutional: alert, obese, oriented Psych: nl mood/affect Head: normocephalic Eyes: PERRL ENMT: mucosa pink and moist Neck: supple Respiratory: clear to auscultation Cardiovascular: regular rate and rhythm Gastrointestinal: bowel sounds, non-tender, soft Genitourinary - Female: other (large vulval wound extending to anus, looks pink , and clean) Extremities: No edema Neurological: nl mental status Results Result Diagram: 10/26/16 0903 10/26/16 0903 Results 24 hrs Laboratory Tests Test 10/25/16 17:32 10/25/16 18:19 10/25/16 20:57 10/26/16 07:53 Bedside Glucose 95 124 108 102 Test 10/26/16 09:03 10/26/16 11:45 Anion Gap 11 Basophils # 0.0 Basophils % 0.4 Blood Morphology Comment Blood Urea Nitrogen 8 Calcium Level 8.1 L Carbon Dioxide Level 27 Chloride Level 107 Creatinine 0.52 Eosinophils # 0.8 H Eosinophils % 14.8 H Glucose Level 110 Hematocrit 27.0 L Hemoglobin 9.2 L Lymphocytes # 1.2 Lymphocytes % 22.9 Mean Corpuscular Hemoglobin 29.2 Mean Corpuscular Hemoglobin Concent 33.9 Mean Corpuscular Volume 86.2 Mean Platelet Volume 7.3 L Monocytes # 0.3 Monocytes % 6.4 Neutrophils # 2.9 Neutrophils % 55.5 Nucleated Red Blood Cells # 0.0 Nucleated Red Blood Cells % 0.0 Platelet Count 80 L Potassium Level 4.1 Red Blood Count 3.13 L Red Cell Distribution Width 16.2 H Sodium Level 141 White Blood Count 5.1 Bedside Glucose 91 Medications Medications Current Medications Aspirin (Halfprin) 81 mg DAILY PO Last administered on 10/26/16 08:29; Admin Dose 81 MG; Start 10/25/16 at 09:00; Status Future Hold Famotidine (Pepcid) 20 mg BID PO Last administered on 10/26/16 08:27; Admin Dose 20 MG; Start 10/24/16 at 21:00 Lactobacillus Acidoph/Bulgaricus (Floranex) 1 tab BID PO Last administered on 08:28; Admin Dose 1 TAB; Start 10/24/16 at 21:00 Lorazepam (Ativan) 2 mg BID PRN PO ANXIETY Last administered on 10/26/16 13:51 ; Admin Dose 2 MG; Start 10/24/16 at 18:00 Losartan Potassium (Cozaar) 25 mg DAILY PO Last administered on 10/26/16 08:30 ; Admin Dose 25 MG; Start 10/25/16 at 09:00 Multivitamins Therapeutic (Theragran) 1 tab DAILY PO Last administered on 08:28; Admin Dose 1 TAB; Start 10/25/16 at 09:00 Senna (Senokot) 2 tab BID PO Last administered on 10/26/16 08:28; Admin Dose 2 TAB; Start 10/24/16 at 21:00 Zinc Sulfate (Zinc Sulfate) 220 mg DAILY PO Last administered on 10/26/16 08: 28; Admin Dose 220 MG; Start 10/25/16 at 09:00 Ondansetron HCl (Zofran Inj) 4 mg Q6H PRN IV NAUSEA AND/OR VOMITING; Start at 18:00 Miscellaneous Information 1 ea NOTE XX ; Start 10/24/16 at 18:00 Glucose (Glutose) 15 gm Q15M PRN PO DECREASED GLUCOSE; Start 10/24/16 at 18:00 Glucose (Glutose) 22.5 gm Q15M PRN PO DECREASED GLUCOSE; Start 10/24/16 at 18: 00 Dextrose (D50w Syringe) 25 ml Q15M PRN IV DECREASED GLUCOSE; Start 10/24/16 at 18:00 Dextrose (D50w Syringe) 50 ml Q15M PRN IV DECREASED GLUCOSE; Start 10/24/16 at 18:00 Glucagon (Glucagen) 1 mg Q15M PRN IM DECREASED GLUCOSE; Start 10/24/16 at 18:00 Glucose (Glutose) 15 gm Q15M PRN BUCCAL DECREASED GLUCOSE; Start 10/24/16 at 18 :00 Acetaminophen/ Hydrocodone Bitart ([place] (5/325)) 1 tab Q6H PRN PO pain Last administered on 10/25/16 08:51; Admin Dose 1 TAB; Start 10/24/16 at 22:00 Nystatin (Nystatin Powder) 1 applic BID TOP Last administered on 10/26/16 08: 32; Admin Dose 1 APPLIC; Start 10/25/16 at 09:00 Docusate Sodium (Colace) 250 mg DAILY PO Last administered on 10/26/16 08:29; Admin Dose 250 MG; Start 10/26/16 at 09:00 Oxycodone/ Acetaminophen (Percocet (5/ 325)) 1 tab Q4H PRN PO PAIN Last administered on 10/26/16 08:29; Admin Dose 1 TAB; Start 10/25/16 at 15:00 Lactulose (Enulose) 20 gm DAILY PO Last administered on 10/26/16 08:31; Admin Dose 20 GM; Start 10/25/16 at 15:00 Lactulose (Enulose) 20 gm Q6H PRN PO CONSTIPATION; Start 10/25/16 at 15:00 Hydromorphone HCl (Dilaudid) 0.5 mg Q4H PRN IV PAIN Last administered on 15:16; Admin Dose 0.5 MG; Start 10/25/16 at 15:00 Sodium Hypochlorite ([place] ([place] 1/40%)) 1 applic DAILY IRR Last administered on 10/26/16 08:32; Admin Dose 1 APPLIC; Start 10/25/16 at 21:00 Amikacin Sulfate AMIKACIN PER PHARMACY NOTE XX ; Start 10/26/16 at 13:30 Doxycycline Hyclate 100 mg/ Sodium Chloride 250 ml @ 250 mls/hr Q12 IVPB ; Start 10/26/16 at 21:00 Amikacin Sulfate/ Sodium Chloride (Amikacin/NS) 104 ml @ 102 mls/hr Q24H IVPB Last administered on 10/26/16 15:17; Admin Dose 102 MLS/HR; Start 10/26/16 at 14:30 Miscellaneous Information (*Rx Drug Level Order Reminder*) AMIKACIN RANDOM LEVEL 1/... ONCE XX ; Start 10/27/16 at 00:30; Stop 10/27/16 at 04:00 Diphenhydramine HCl (Benadryl) 25 mg Q6H PRN PO ITCHING Last administered on 15:51; Admin Dose 25 MG; Start 10/26/16 at 15:00 KAILYN YOON Oct 26, 2016 16:05
[2016-10-26 19:52] VITALS: BP 121/60; RESP 18
[2016-10-26] MEDS: DOXYCYCLINE 100 MG in SOD CHLORIDE 0.9% 250 ML IVPB SCH (21:06)
[2016-10-27] MEDS: DIPHENHYDRAMINE 25 MG CAP PO PRN ×3 (00:56→23:15)
[2016-10-27] MEDS: HYDROmorphONE 1 MG/ML SYG IV PRN ×4 (05:47→20:56)
[2016-10-27 05:54] LABS: POTASSIUM 4.3 mmol/L (3.5-5.1)
[2016-10-27 05:57] LABS: CREATININE 0.48 mg/dl (0.44-1.00)
[2016-10-27 05:58] LABS: CALCIUM 7.9 mg/dl (8.4-10.2)
[2016-10-27 06:23] LABS: BASOPHILS % 0.6 % (0.0-2.0); EOSINOPHILS # 0.8 10^3/ul (0.0-0.5); EOSINOPHILS % 16.2 % (0.0-7.0); HEMATOCRIT 27.4 % (37.0-47.0); HEMOGLOBIN 9.1 g/dl (12.0-16.0); LYMPHOCYTES # 1.4 10^3/ul (0.8-2.9); LYMPHOCYTES % 26.9 % (15.0-51.0); MEAN CORPUSCULAR HEMOGLOBIN 29.3 pg (29.0-33.0); MEAN CORPUSCULAR HGB CONC 33.4 g/dl (32.0-37.0); MEAN CORPUSCULAR VOLUME 87.8 fl (82.0-101.0); MEAN PLATELET VOLUME 7.9 fl (7.4-10.4); MONOCYTE # 0.3 10^3/ul (0.3-0.9); MONOCYTES % 6.1 % (0.0-11.0); NEUTROPHIL # 2.6 10^3/ul (1.6-7.5); NEUTROPHILS % 50.2 % (39.0-77.0); RED BLOOD COUNT 3.12 10^6/ul (4.20-5.40); UNCORRECTED WBC 5.2 10^3/ul (4.8-10.8); WHITE BLOOD COUNT 5.2 10^3/ul (4.8-10.8)
[2016-10-27 07:02] LABS: CONDITION 1; LH ANALYZER COMMENTS 1
[2016-10-27 07:03] LABS: PLATELET COUNT 85 10^3/UL (140-440)
[2016-10-27] MEDS: INSULIN ASPART [NOVOLOG] 3 ML PEN SC SCH ×4 (08:00→20:56)
[2016-10-27 08:11] VITALS: BP 113/57; RESP 16
[2016-10-27] MEDS: MULTIVITAMINS THERAPEUTIC TAB PO SCH (10:42)
[2016-10-27] MEDS: SENNA TAB PO SCH ×2 (10:42→20:56)
[2016-10-27] MEDS: ZINC SULFATE 220 MG CAP PO SCH (10:42)
[2016-10-27] MEDS: LACTULOSE 30ML CUP PO SCH (10:42)
[2016-10-27] MEDS: FAMOTIDINE 20 MG TAB PO SCH ×2 (10:42→20:56)
[2016-10-27] MEDS: DOCUSATE SODIUM 250 MG CAP PO SCH (10:42)
[2016-10-27] MEDS: LACTOBACILLUS CHEW TAB PO SCH ×2 (10:43→20:56)
[2016-10-27] MEDS: LOSARTAN 25 MG TAB PO SCH (10:43)
[2016-10-27] MEDS: DOXYCYCLINE 100 MG in SOD CHLORIDE 0.9% 250 ML IVPB SCH (10:44)
[2016-10-27] MEDS: SODIUM HYPOCHLORITE 1/40% 1L IRRIG IRR SCH (10:50)
[2016-10-27] MEDS: NYSTATIN 30 GM POWDER BTL TOP SCH ×2 (10:50→20:56)
[2016-10-27] MEDS: LORAZEPAM 1 MG TAB PO PRN (11:46)
[2016-10-27] MEDS: AMIKACIN 1,000 MG in SOD CHLORIDE 0.9% 100 ML IVPB SCH (15:01)
--- NOTE | 2016-10-27 15:11 | PDOCDIS ---
Discharge Instructions CONDITION Patient Condition: Stable HOME CARE INSTRUCTIONS: Special Diet: 1800 ADA ACTIVITY: Activity Restrictions: Slowly Increase Activity FOLLOW UP/APPOINTMENTS Appointments Take your medications, and see your clinic doctor in 1 week. KAILYN YOON Oct 27, 2016 15:11
--- NOTE | 2016-10-27 15:18 | PN ---
Date/Time of Note Date/Time of Note DATE: 10/27/16 TIME: 15:16 Assessment/Plan VTE Prophylaxis VTE Prophylaxis Intervention: heparin Lines/Catheters IV Catheter Type (from Nrs): PICC Line Central line still needed: Yes Urinary Cath still in place: Yes Reason Cath still needed: urinary retention Assessment/Plan Chief Complaint/Hosp Course Assessment/Plan: 61 yo F with 1. 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 She's to complete 6 weeks of abx till . Repeat Wound cultures this admission growing Acetobacter and Klebsiella. - Continue antibiotic regimen to completion which includes amikacin and doxy for now - f/u ID consult / blood cultures and wound cultures - Resume daily wound care with darkins solution, wound consult 2. Morbid Obesity - PT eval 3. PreDM - Continue Calorie controlled Diabetic diet / SSI and current hypoglycemic regimen 4. HTN: Controlled 5. Chronic NC anemia 2/2 Chronic disease 6. Chronic back pain: -on chronic opioids at home - pain control/ antiemetics/ antipyretics/ supportive care 7. Constipation : likely 2/2 opioid use - lactulose to current regimen to help with constipation 8. Dispo: in 24 hrs with FWW, HH nursing, and IV abx. Problems: Subjective 24 Hr Interval Summary Free Text/Dictation Pt had no acute events overnight. Exam/Review of Systems Vital Signs Vitals Vital Signs Date Time Temp Pulse Resp B/P Pulse Ox O2 Delivery O2 Flow Rate FiO2 10/27/16 08:11 97.9 76 16 113/57 95 10/24/16 18:21 Room Air Intake and Output 10/26/16 10/26/16 10/27/16 15:00 23:00 07:00 Intake Total 166.67 ml 1734 ml 960 ml Output Total 750 ml 2200 ml Balance 166.67 ml 984 ml -1240 ml Exam Constitutional: alert, obese, oriented Psych: nl mood/affect Head: normocephalic Eyes: PERRL ENMT: mucosa pink and moist Neck: supple Respiratory: clear to auscultation Cardiovascular: regular rate and rhythm Gastrointestinal: bowel sounds, non-tender, soft Genitourinary - Female: other (large vulval wound extending to anus, looks pink , and clean) Extremities: No edema Neurological: nl mental status Results Result Diagram: 10/27/16 0420 10/27/16 0420 Results 24 hrs Laboratory Tests Test 10/26/16 17:10 10/26/16 20:14 10/27/16 00:25 10/27/16 01:46 Bedside Glucose 108 105 122 Random Amikacin Level Test 10/27/16 04:20 10/27/16 08:15 10/27/16 08:57 10/27/16 11:48 Anion Gap 10 Basophils # 0.0 Basophils % 0.6 Blood Morphology Comment Blood Urea Nitrogen 7 Calcium Level 7.9 L Carbon Dioxide Level 28 Chloride Level 107 Creatinine 0.48 Eosinophils # 0.8 H Eosinophils % 16.2 H Glucose Level 80 Hematocrit 27.4 L Hemoglobin 9.1 L Lymphocytes # 1.4 Lymphocytes % 26.9 Mean Corpuscular Hemoglobin 29.3 Mean Corpuscular Hemoglobin Concent 33.4 Mean Corpuscular Volume 87.8 Mean Platelet Volume 7.9 Monocytes # 0.3 Monocytes % 6.1 Neutrophils # 2.6 Neutrophils % 50.2 Nucleated Red Blood Cells # 0.0 Nucleated Red Blood Cells % 0.0 Platelet Count 85 L Potassium Level 4.3 Red Blood Count 3.12 L Red Cell Distribution Width 16.0 H Sodium Level 141 White Blood Count 5.2 Bedside Glucose 101 119 Lab Scanned Report REFERENCE LAB Medications Medications Current Medications Aspirin (Halfprin) 81 mg DAILY PO Last administered on 10/26/16 08:29; Admin Dose 81 MG; Start 10/25/16 at 09:00; Status Future Hold Famotidine (Pepcid) 20 mg BID PO Last administered on 10/27/16 10:42; Admin Dose 20 MG; Start 10/24/16 at 21:00 Lactobacillus Acidoph/Bulgaricus (Floranex) 1 tab BID PO Last administered on 10:43; Admin Dose 1 TAB; Start 10/24/16 at 21:00 Lorazepam (Ativan) 2 mg BID PRN PO ANXIETY Last administered on 10/27/16 11:46 ; Admin Dose 2 MG; Start 10/24/16 at 18:00 Losartan Potassium (Cozaar) 25 mg DAILY PO Last administered on 10/27/16 10:43 ; Admin Dose 25 MG; Start 10/25/16 at 09:00 Multivitamins Therapeutic (Theragran) 1 tab DAILY PO Last administered on 10:42; Admin Dose 1 TAB; Start 10/25/16 at 09:00 Senna (Senokot) 2 tab BID PO Last administered on 10/27/16 10:42; Admin Dose 2 TAB; Start 10/24/16 at 21:00 Zinc Sulfate (Zinc Sulfate) 220 mg DAILY PO Last administered on 10/27/16 10: 42; Admin Dose 220 MG; Start 10/25/16 at 09:00 Ondansetron HCl (Zofran Inj) 4 mg Q6H PRN IV NAUSEA AND/OR VOMITING; Start at 18:00 Miscellaneous Information 1 ea NOTE XX ; Start 10/24/16 at 18:00 Glucose (Glutose) 15 gm Q15M PRN PO DECREASED GLUCOSE; Start 10/24/16 at 18:00 Glucose (Glutose) 22.5 gm Q15M PRN PO DECREASED GLUCOSE; Start 10/24/16 at 18: 00 Dextrose (D50w Syringe) 25 ml Q15M PRN IV DECREASED GLUCOSE; Start 10/24/16 at 18:00 Dextrose (D50w Syringe) 50 ml Q15M PRN IV DECREASED GLUCOSE; Start 10/24/16 at 18:00 Glucagon (Glucagen) 1 mg Q15M PRN IM DECREASED GLUCOSE; Start 10/24/16 at 18:00 Glucose (Glutose) 15 gm Q15M PRN BUCCAL DECREASED GLUCOSE; Start 10/24/16 at 18 :00 Acetaminophen/ Hydrocodone Bitart ([place] (5/325)) 1 tab Q6H PRN PO pain Last administered on 10/25/16 08:51; Admin Dose 1 TAB; Start 10/24/16 at 22:00 Nystatin (Nystatin Powder) 1 applic BID TOP Last administered on 10/27/16 10: 50; Admin Dose 1 APPLIC; Start 10/25/16 at 09:00 Docusate Sodium (Colace) 250 mg DAILY PO Last administered on 10/27/16 10:42; Admin Dose 250 MG; Start 10/26/16 at 09:00 Oxycodone/ Acetaminophen (Percocet (5/ 325)) 1 tab Q4H PRN PO PAIN Last administered on 1/30/17at 23:31; Admin Dose 1 TAB; Start 10/25/16 at 15:00 Lactulose (Enulose) 20 gm DAILY PO Last administered on 10/27/16 10:42; Admin Dose 20 GM; Start 10/25/16 at 15:00 Lactulose (Enulose) 20 gm Q6H PRN PO CONSTIPATION; Start 10/25/16 at 15:00 Hydromorphone HCl (Dilaudid) 0.5 mg Q4H PRN IV PAIN Last administered on 14:52; Admin Dose 0.5 MG; Start 10/25/16 at 15:00 Sodium Hypochlorite (Dakin'S (Dilute 1/40%)) 1 applic DAILY IRR Last administered on 10/27/16 10:50; Admin Dose 1 APPLIC; Start 10/25/16 at 21:00 Amikacin Sulfate AMIKACIN PER PHARMACY NOTE XX ; Start 10/26/16 at 13:30 Doxycycline Hyclate 100 mg/ Sodium Chloride 250 ml @ 250 mls/hr Q12 IVPB Last administered on 10/27/16 10:44; Admin Dose 250 MLS/HR; Start 10/26/16 at 21:00 Amikacin Sulfate/ Sodium Chloride (Amikacin/NS) 104 ml @ 102 mls/hr Q24H IVPB Last administered on 10/27/16 15:01; Admin Dose 102 MLS/HR; Start 10/26/16 at 14:30 Diphenhydramine HCl (Benadryl) 25 mg Q6H PRN PO ITCHING Last administered on 00:56; Admin Dose 25 MG; Start 10/26/16 at 15:00 KAILYN YOON Oct 27, 2016 15:18
--- NOTE | 2016-10-27 16:46 | CONS ---
Date/Time of Note Date/Time of Note DATE: 10/27/16 TIME: 16:44 Assessment/Plan Assessment/Plan Chief Complaint/Hosp Course SUBJECTIVE: The patient is alert, eating lunch, looks comfortable, no fevers overnight. ANTIMICROBIALS: She is on: 1. Doxycycline. 2. Amikacin. ALLERGIES: PENICILLIN AND KEFLEX PHYSICAL EXAMINATION: GENERAL: Obese, well-developed elderly woman who is awake, in no distress. HEENT: Head atraumatic, normocephalic. Sclerae anicteric. Buccal mucosa dry. NECK: Supple. CHEST: Rise symmetrical. Breath sounds clear. HEART: S1, S2. ABDOMEN: Soft, bowel tones present. EXTREMITIES: No cyanosis. ASSESSMENT 1. 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 Morbid obesity. 3. Diabetes. 4. Hypertension. 5. ALLERGY TO PENICILLIN AND KEFLEX. PLAN: Stable, dc Doxycycline, start Levaquin, continue Amikacin, local wound care. Monitor renal function closely and consider surgical evaluation for possible repeat debridement. Problems: Consultation Date/Type/Reason Admit Date/Time Oct 24, 2016 at 17:03 Initial Consult Date Type of Consultation: id Exam/Review of Systems Vital Signs Vitals Vital Signs Date Time Temp Pulse Resp B/P Pulse Ox O2 Delivery O2 Flow Rate FiO2 10/27/16 08:11 97.9 76 16 113/57 95 10/24/16 18:21 Room Air Intake and Output 10/26/16 10/26/16 10/27/16 15:00 23:00 07:00 Intake Total 166.67 ml 1734 ml 960 ml Output Total 750 ml 2200 ml Balance 166.67 ml 984 ml -1240 ml Results Result Diagram: 10/27/16 0420 10/27/16 0420 Results 24 hrs Laboratory Tests Test 10/26/16 17:10 10/26/16 20:14 10/27/16 00:25 10/27/16 01:46 Bedside Glucose 108 105 122 Random Amikacin Level Test 10/27/16 04:20 10/27/16 08:15 10/27/16 08:57 10/27/16 11:48 Anion Gap 10 Basophils # 0.0 Basophils % 0.6 Blood Morphology Comment Blood Urea Nitrogen 7 Calcium Level 7.9 L Carbon Dioxide Level 28 Chloride Level 107 Creatinine 0.48 Eosinophils # 0.8 H Eosinophils % 16.2 H Glucose Level 80 Hematocrit 27.4 L Hemoglobin 9.1 L Lymphocytes # 1.4 Lymphocytes % 26.9 Mean Corpuscular Hemoglobin 29.3 Mean Corpuscular Hemoglobin Concent 33.4 Mean Corpuscular Volume 87.8 Mean Platelet Volume 7.9 Monocytes # 0.3 Monocytes % 6.1 Neutrophils # 2.6 Neutrophils % 50.2 Nucleated Red Blood Cells # 0.0 Nucleated Red Blood Cells % 0.0 Platelet Count 85 L Potassium Level 4.3 Red Blood Count 3.12 L Red Cell Distribution Width 16.0 H Sodium Level 141 White Blood Count 5.2 Bedside Glucose 101 119 Lab Scanned Report REFERENCE LAB Medications Medications Current Medications Aspirin (Halfprin) 81 mg DAILY PO Last administered on 10/26/16 08:29; Admin Dose 81 MG; Start 10/25/16 at 09:00; Status Future Hold Famotidine (Pepcid) 20 mg BID PO Last administered on 10/27/16 10:42; Admin Dose 20 MG; Start 10/24/16 at 21:00 Lactobacillus Acidoph/Bulgaricus (Floranex) 1 tab BID PO Last administered on 10:43; Admin Dose 1 TAB; Start 10/24/16 at 21:00 Lorazepam (Ativan) 2 mg BID PRN PO ANXIETY Last administered on 10/27/16 11:46 ; Admin Dose 2 MG; Start 10/24/16 at 18:00 Losartan Potassium (Cozaar) 25 mg DAILY PO Last administered on 10/27/16 10:43 ; Admin Dose 25 MG; Start 10/25/16 at 09:00 Multivitamins Therapeutic (Theragran) 1 tab DAILY PO Last administered on 10:42; Admin Dose 1 TAB; Start 10/25/16 at 09:00 Senna (Senokot) 2 tab BID PO Last administered on 10/27/16 10:42; Admin Dose 2 TAB; Start 10/24/16 at 21:00 Zinc Sulfate (Zinc Sulfate) 220 mg DAILY PO Last administered on 10/27/16 10: 42; Admin Dose 220 MG; Start 10/25/16 at 09:00 Ondansetron HCl (Zofran Inj) 4 mg Q6H PRN IV NAUSEA AND/OR VOMITING; Start at 18:00 Miscellaneous Information 1 ea NOTE XX ; Start 10/24/16 at 18:00 Glucose (Glutose) 15 gm Q15M PRN PO DECREASED GLUCOSE; Start 10/24/16 at 18:00 Glucose (Glutose) 22.5 gm Q15M PRN PO DECREASED GLUCOSE; Start 10/24/16 at 18: 00 Dextrose (D50w Syringe) 25 ml Q15M PRN IV DECREASED GLUCOSE; Start 10/24/16 at 18:00 Dextrose (D50w Syringe) 50 ml Q15M PRN IV DECREASED GLUCOSE; Start 10/24/16 at 18:00 Glucagon (Glucagen) 1 mg Q15M PRN IM DECREASED GLUCOSE; Start 10/24/16 at 18:00 Glucose (Glutose) 15 gm Q15M PRN BUCCAL DECREASED GLUCOSE; Start 10/24/16 at 18 :00 Acetaminophen/ Hydrocodone Bitart ([place] (5/325)) 1 tab Q6H PRN PO pain Last administered on 10/25/16 08:51; Admin Dose 1 TAB; Start 10/24/16 at 22:00 Nystatin (Nystatin Powder) 1 applic BID TOP Last administered on 10/27/16 10: 50; Admin Dose 1 APPLIC; Start 10/25/16 at 09:00 Docusate Sodium (Colace) 250 mg DAILY PO Last administered on 10/27/16 10:42; Admin Dose 250 MG; Start 10/26/16 at 09:00 Oxycodone/ Acetaminophen (Percocet (5/ 325)) 1 tab Q4H PRN PO PAIN Last administered on 10/26/16 23:31; Admin Dose 1 TAB; Start 10/25/16 at 15:00 Lactulose (Enulose) 20 gm DAILY PO Last administered on 10/27/16 10:42; Admin Dose 20 GM; Start 10/25/16 at 15:00 Lactulose (Enulose) 20 gm Q6H PRN PO CONSTIPATION; Start 10/25/16 at 15:00 Hydromorphone HCl (Dilaudid) 0.5 mg Q4H PRN IV PAIN Last administered on 14:52; Admin Dose 0.5 MG; Start 10/25/16 at 15:00 Sodium Hypochlorite (Dakin'S (Dilute 1/40%)) 1 applic DAILY IRR Last administered on 10/27/16 10:50; Admin Dose 1 APPLIC; Start 10/25/16 at 21:00 Amikacin Sulfate AMIKACIN PER PHARMACY NOTE XX ; Start 10/26/16 at 13:30 Doxycycline Hyclate 100 mg/ Sodium Chloride 250 ml @ 250 mls/hr Q12 IVPB Last administered on 10/27/16 10:44; Admin Dose 250 MLS/HR; Start 10/26/16 at 21:00 Amikacin Sulfate/ Sodium Chloride (Amikacin/NS) 104 ml @ 102 mls/hr Q24H IVPB Last administered on 10/27/16 15:01; Admin Dose 102 MLS/HR; Start 10/26/16 at 14:30 Diphenhydramine HCl (Benadryl) 25 mg Q6H PRN PO ITCHING Last administered on 16:09; Admin Dose 25 MG; Start 10/26/16 at 15:00 SHAWN MARIE NP Oct 27, 2016 16:46
[2016-10-27] MEDS ORDERED: LEVOFLOXACIN 750 MG TABLET PO ONE (17:00)
[2016-10-27 19:52] VITALS: BP 106/55; RESP 16
[2016-10-27] MEDS: OXYCODONE/ACETAMINOPHEN (5/325) TAB PO PRN (23:20)
[2016-10-28] MEDS: HYDROmorphONE 1 MG/ML SYG IV PRN ×4 (01:44→18:32)
[2016-10-28] MEDS ORDERED: LEVOFLOXACIN 750 MG TABLET PO SCH (06:00)
[2016-10-28] MEDS: INSULIN ASPART [NOVOLOG] 3 ML PEN SC SCH ×3 (08:00→18:05)
[2016-10-28 08:16] VITALS: BP 104/58; RESP 20
[2016-10-28] MEDS: LOSARTAN 25 MG TAB PO SCH (09:00)
[2016-10-28] MEDS: ZINC SULFATE 220 MG CAP PO SCH (09:13)
[2016-10-28] MEDS: FAMOTIDINE 20 MG TAB PO SCH (09:13)
[2016-10-28] MEDS: DOCUSATE SODIUM 250 MG CAP PO SCH (09:13)
[2016-10-28] MEDS: LACTOBACILLUS CHEW TAB PO SCH (09:13)
[2016-10-28] MEDS: SENNA TAB PO SCH (09:14)
[2016-10-28] MEDS: LACTULOSE 30ML CUP PO SCH (09:14)
[2016-10-28] MEDS: MULTIVITAMINS THERAPEUTIC TAB PO SCH (09:14)
[2016-10-28] MEDS: NYSTATIN 30 GM POWDER BTL TOP SCH (09:15)
[2016-10-28] MEDS: SODIUM HYPOCHLORITE 1/40% 1L IRRIG IRR SCH (09:16)
--- NOTE | 2016-10-28 09:27 | PDOCDIS ---
Discharge Instructions CONDITION Patient Condition: Stable HOME CARE INSTRUCTIONS: Special Diet: 1800 ADA ACTIVITY: Activity Restrictions: Slowly Increase Activity FOLLOW UP/APPOINTMENTS Appointments Take your medications, see your clinic doctor in 1 week. KAILYN YOON Oct 28, 2016 09:27
[2016-10-28] MEDS: LORAZEPAM 1 MG TAB PO PRN (09:29)
[2016-10-28] MEDS ORDERED: Amikacin Iv Per Pharmacy XX (09:32)
[2016-10-28] MEDS ORDERED: LACT20SO12 PO (09:32)
[2016-10-28] MEDS ORDERED: NYST15PO4 TOP (09:32)
[2016-10-28] MEDS ORDERED: LEVO750T25 PO (09:32)
--- NOTE | 2016-10-28 10:29 | RADRPT ---
PROCEDURE: XR Abdomen CLINICAL INDICATION: Pain TECHNIQUE: An AP supine radiograph of the abdomen was submitted. COMPARISON: To the previous CT done 10/05/[address] demonstrated a cirrhotic liver with splenomegaly, cholelithiasis and a calculus with in the right renal pelvis as well as the right upper pole renal cyst. FINDINGS: The bowel gas pattern is unremarkable. No organomegaly or discrete mass is identified. A 3 cm ovoid calcification projects in the right upper quadrant compatible with the stone previously seen within the right renal pelvis. Moderate degenerative spine changes are noted. The soft tissues are quite generous. IMPRESSION: 1. 3 cm in maximal diameter ovoid calcification is seen in the right upper quadrant compatible with a stone within the renal pelvis. 2. Moderate degenerative spine changes 3. Otherwise, nonspecific abdomen within the limitations of less than optimal detail to the patient 's extremely large body habitus Physician Angelica Date Time Electronically viewed and signed by Physician Angelica on 10/28/2016 10:29 /
--- NOTE | 2016-10-28 10:54 | DS ---
DATE OF ADMISSION: 10/24/2016 DATE OF DISCHARGE: 10/27/2016 HISTORY OF PRESENT ILLNESS: A 61-year-old female originally admitted on 10/24/2016, being discharg ed home pending results of KUB on 10/27/2016. HOSPITAL COURSE: The patient came in with a vulvar wound infection. She had been admitted previous ly to our hospital from 10/05/2016 to 10/19/2016 for a Damián gangrene that was I and D'd at that time. She came back with an infection in the same surgical site. The patient was admitted and plac ed on IV antibiotics and seen by infectious disease team during this hospital stay. She was also se en by wound care team. The antibiotics were changed. She already had a PICC line in place from her last admission, but she did receive IV antibiotics. She also was seen by PT team as well and worke d with physical therapy. Over the course of her hospital stay, her pain symptoms improved. She had no leukocytosis and no fe vers. She was able to work with physical therapy and ambulate that way and tolerate a diet, and the recommendations were to continue antibiotics for a total of 6 weeks so that will be until 7. The patient was having some abdominal exam on day of discharge so we are going to check a KUB and if it is normal, she can follow up as an outpatient with surgery team as she has a history of a lap ba nd in the past. Her wound culture this admission did show positive acinetobacter and positive Klebs iella pneumoniae and the antibiotics were tailored appropriately for that. On her last admission, he r wound culture grew strep nutritionally variant species, so based on recommendations of infectious disease team, she will be discharged today in improved condition. DISCHARGE MEDICATIONS: She will be sent with the following medications: 1. Lactulose 20 grams p.o. daily. 2. Levaquin 750 mg p.o. daily for 28 days. 3. Nystatin, apply topically b.i.d. 4. Amikacin IV dosing per pharmacy until 11/24/2016. 5. She will continue Colace 100 mg q.12h. 6. Nexium 40 mg daily. 7. Famotidine 20 mg b.i.d. 8. Lactinex 1 tablet p.o. b.i.d. 9. Ativan 2 mg p.o. b.i.d. p.r.n. 10. Cozaar 25 mg daily. 11. Metformin 500 mg b.i.d. 12. Multivitamin 1 tab daily. 13. Senna 2 tabs p.o. b.i.d. 14. Zinc sulfate 220 mg p.o. daily. She will need to follow up with her primary care doctor and surgery team in the clinic in next 1 to 2 weeks. FINAL DIAGNOSES: 1. 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 2. Morbid obesity. Educated about weight cessation. 3. Prediabetes, sugars are stable. 4. Essential hypertension, stable. 5. History of chronic anemia. 6. Chronic low back pain. 7. History of constipation. TIME SPENT IN DISCHARGING PATIENT: 45 minutes. Dictated By: KAILYN VEGA Conf#: [id number] DID#: [id number]
--- NOTE | 2016-10-28 14:05 | RADRPT ---
PROCEDURE: CT Abdomen and pelvis without contrast. CLINICAL INDICATION: Abdominal pain TECHNIQUE: CT scan of the abdomen and pelvis with contrast was performed on a multidetector high-r esolution CT scan. . Coronal and sagittal reformatted images were obtained from the axial source i mages. Standard CT scan of the abdomen pelvis without contrast protocols were performed. The total exam CTDI equals 23.73 mGy and the total exam DLP equals 1371.67 mGy-cm. One or more of the following dose reduction techniques were used: - Automated exposure control. - Adjustment of the mA and/or kV according to patient size. Use of iterative reconstruction technique. COMPARISON: CT scan of the abdomen pelvis with contrast 10/05/2016 FINDINGS: There is no significant interval change seen. The lung bases remain unremarkable. Again noted is e vidence of cirrhosis without focal hepatic lesion. There is moderate splenomegaly without focal spl enic lesion. The gallbladder is mildly distended with numerous calcified gallstones but no evidence of gallbladder wall thickening and no evidence of biliary ductal dilation. New the adrenal glands are unremarkable. The the pancreas is unremarkable. No change in the pedunculated superior pole ri ght renal cyst. No change in the nonobstructing right renal pelvic calculus. No hydronephrosis georges aterally. There is a Mauricio catheter within a nondistended urinary bladder which is otherwise unrema rkable. Negative for intra-abdominal free air free fluid abscesses or lymphadenopathy. Again noted is sigmoid diverticulosis. No CT scan evidence of diverticulitis or appendicitis. The stomach and small bowel are unremarkable. On the previous study there is more inferior extension of imaging of the gluteal regions. However again noted but less visualized is infiltration of the left peronea l soft tissues extending to involve left nelsy anal and gluteal cleft regions with subcutaneous gas b ut no localized fluid collections to suggest abscess. This finding is worrisome for Damián gangre ne. Again noted are diffuse degenerative change involving the lower thoracic and lumbar spine. IMPRESSION: 1. No significant change. 2. Distended gallbladder with numerous calcified gallstones but no gallbladder wall thickening or b iliary ductal dilation. 3. Cirrhosis and splenomegaly unchanged. 4. No change in the nonobstructing right renal calcified calculus. 5. Sigmoid diverticulosis but no CT scan evidence of diverticulitis. 6. Again noted are soft tissue changes involving the left perineal region extending into the perian al and gluteal cleft regions with subcutaneous gas worrisome for Daimán gangrene as described abov e. No abscess demonstrated. 7. No evidence of intra-abdominal free air free fluid abscesses or lymphadenopathy. RPTAT:AAJJ Chandrika Christiansen Physician Date Time Electronically viewed and signed by Chandrika Christiansen Physician on 10/28/2016 14:05 /
[2016-10-28] MEDS: AMIKACIN 1,000 MG in SOD CHLORIDE 0.9% 100 ML IVPB SCH (14:58)
--- NOTE | 2016-10-28 20:45 | CONS ---
Date/Time of Note Date/Time of Note DATE: 10/28/16 TIME: 20:44 Assessment/Plan Assessment/Plan Chief Complaint/Hosp Course SUBJECTIVE: The patient is sleeping, looks comfortable, no fevers overnight. ANTIMICROBIALS: She is on: 1. Levaquin 2. Amikacin. ALLERGIES: PENICILLIN AND KEFLEX PHYSICAL EXAMINATION: GENERAL: Obese, well-developed elderly woman who is in no distress. HEENT: Head atraumatic, normocephalic. Sclerae anicteric. Buccal mucosa dry. NECK: Supple. CHEST: Rise symmetrical. Breath sounds clear. HEART: S1, S2. ABDOMEN: Soft, bowel tones present. EXTREMITIES: No cyanosis. ASSESSMENT 1. 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 Morbid obesity. 3. Diabetes. 4. Hypertension. 5. ALLERGY TO PENICILLIN AND KEFLEX. PLAN: Remains stable, continue abx, local wound care. Monitor renal function closely and consider surgical evaluation for possible repeat debridement. staff Problems: Consultation Date/Type/Reason Admit Date/Time Oct 24, 2016 at 17:03 Type of Consultation: id Exam/Review of Systems Vital Signs Vitals Vital Signs Date Time Temp Pulse Resp B/P Pulse Ox O2 Delivery O2 Flow Rate FiO2 10/28/16 08:16 98.4 79 20 104/58 98 10/24/16 18:21 Room Air Intake and Output 10/27/16 10/27/16 10/28/16 15:00 23:00 07:00 Intake Total 250 ml 662 ml 480 ml Output Total 1800 ml 2000 ml Balance 250 ml -1138 ml -1520 ml Results Result Diagram: 10/27/16 0420 10/27/16 0420 Results 24 hrs Laboratory Tests Test 10/28/16 07:43 10/28/16 11:58 10/28/16 17:10 Bedside Glucose 103 115 119 SHAWN MARIE NP Oct 28, 2016 20:45
== END 2016-10-28 19:14 | disposition home health service (06) | DRG 863 ==
LOC: E/R 15:22 → PP2 17:03
PROVIDERS: ADMIT Family Medicine; ATTEND Family Medicine
DX: T81.4XXA Infection following a procedure, initial encounter (principal); R65.10 Systemic inflammatory response syndrome (SIRS) of non-infectious origin without acute organ dysfunction; Z68.43 Body mass index [BMI] 50.0-59.9, adult; E66.01 Morbid (severe) obesity due to excess calories; J44.9 Chronic obstructive pulmonary disease, unspecified; N76.2 Acute vulvitis; N76.89 Other specified inflammation of vagina and vulva; I10 Essential (primary) hypertension; Z16.35 Resistance to multiple antimicrobial drugs; M54.5 Low back pain; R73.03 Prediabetes; D63.8 Anemia in other chronic diseases classified elsewhere; J45.909 Unspecified asthma, uncomplicated; K59.03 Drug induced constipation; T40.2X5A Adverse effect of other opioids, initial encounter; B96.1 Klebsiella pneumoniae [K. pneumoniae] as the cause of diseases classified elsewhere; Y83.8 Other surgical procedures as the cause of abnormal reaction of the patient, or of later complication, without mention of misadventure at the time of the procedure; Y92.122 Bedroom in nursing home as the place of occurrence of the external cause; Z79.4 Long term (current) use of insulin; Z79.891 Long term (current) use of opiate analgesic; Z88.0 Allergy status to penicillin; Z88.1 Allergy status to other antibiotic agents; Z98.84 Bariatric surgery status
CPT/HCPCS: 71010; 74000; 74176; 80048; 80053; 80150; 81001; 81003; 82962; 83605; 83735; 85025; 85610; 85730; 87040; 87070; 87081; 87086; 93970; 96374; 96375; J0278; J0743; J1170; J1335; J1815; J2270; J2405; J3370; J3475; J7050

== ENCOUNTER 2016-11-06 17:14 | Emergency (ER) | payer OTHER ==
[~2016-11-06] VITALS: Ht 167.6 cm; Wt 280.0 kg
[~2016-11-06 17:14] MED LIST changes: -ASPI-664 PO; +Amikacin Iv Per Pharmacy XX; -DAK125 IRR; -ERTA1VIA IV; +LACT20SO12 PO; +LEVO750T25 PO; +NYST15PO4 TOP; -ORPH100T PO; -OXYC-284 PO; -VANC1.257 IV; -Vancomycin Iv Per Pharmacy XX
[2016-11-06] MEDS ORDERED: ONDANSETRON 4 MG INJ IV STA (17:24)
[2016-11-06] MEDS ORDERED: SOD CHLORIDE 0.9% 1,000 ML IV STA (17:24)
[2016-11-06] MEDS ORDERED: HYDROmorphONE 1 MG/ML SYG IV STA (17:24)
[2016-11-06] MEDS ORDERED: LORAZEPAM 2 MG INJ IV ONE (17:30)
[2016-11-06 17:32] VITALS: Ht 167.6 cm; Wt 280.0 kg
--- NOTE | 2016-11-06 17:42 | ERD ---
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 The patient was discharged 9 days ago. The patient presents with persistent lumbar and back pain that is moderate and severe. She denies any migratory pain to the bilateral lower extremities. No fevers or chills. The patient is receiving home antibiotics and has not missed any doses. She states the pain is similar to chronic pain in the past. The patient states that she is having difficulty getting around at home because of the pain. She takes OxyContin at home. ROS All systems reviewed and are negative except as per history of present illness. Medications Home Meds Active Scripts [Amikacin Iv Per Pharmacy] 1 EA EACH No Conflict Check, 0 EA XX NOTE Prov:KAILYN YOON S. 10/28/16 Nystatin* (Nystop*) 15 Gm Powder, 1 APPLIC TOP BID, #60 1 Refill Prov:KAILYN YOON S. 10/28/16 Lactulose* (Cephulac*) 20 Gm/30 Ml Soln, 20 GM PO DAILY for 30 Days Prov:KAILYN YOON S. 10/28/16 Levofloxacin* (Levaquin*) 750 Mg Tablet, 750 MG PO DAILY@06 for 28 Days, #28 TAB Prov:KAILYN YOON S. 10/28/16 Zinc Sulfate* (Zinc Sulfate*) 220 Mg Cap, 220 MG PO DAILY for 30 Days, CAP Prov:NORBERTOTAMEKA BundyATITO M. 10/19/16 Multivitamins* (Theragran*) 1 Tab Tab, 1 TAB PO DAILY for 30 Days, TAB 1 Refill Prov:JUAN FRANCISCO THORNTONO M. 10/19/16 Lactobacillus Acidophilus* (Lactinex*) 1 Tab Chew, 1 TAB PO BID for 30 Days, TAB Prov:NORBERTOEMELY Bundy M. 10/19/16 Docusate Sodium* (Colace*) 100 Mg Capsule, 100 MG PO Q12 for 30 Days, CAP Prov:EMELY THORNTON M. 10/19/16 Famotidine* (Famotidine*) 20 Mg Tablet, 20 MG PO BID for 30 Days, TAB Prov:EMELY THORNTON. 10/19/16 Losartan Potassium* (Cozaar*) 25 Mg Tablet, 25 MG PO DAILY for 30 Days, TAB 1 Refill Prov:EMELY THORNTON. 10/19/16 Sennosides* (Senna Lax*) 8.6 Mg Tablet, 2 TAB PO BID for 30 Days, TAB 1 Refill Prov:EMELY THORNTON. 10/19/16 Reported Medications Metformin* (Glucophage*) 500 Mg Tab, 500 MG PO BID, TAB 03/21/15 Lorazepam* (Ativan*) 2 Mg Tablet, 2 MG PO BID Y for ANXIETY, TAB 03/21/15 Esomeprazole Mag Trihydrate (Nexium) 40 Mg Capsule.dr, 40 MG PO DAILY, CAP 03/21/15 Allergies Allergies: Coded Allergies: Penicillins (Verified Allergy, Severe, UNABLE TO BREATHE, 11/06/16) avocado (Verified Allergy, Severe, UNABLE TO BREATHE, 11/06/16) cephalexin (Verified Allergy, Severe, UNABLE TO BREATH, 11/06/16) Shellfish (Verified Allergy, Mild, 11/06/16) ampicillin (Verified Allergy, Unknown, 11/06/16) PMhx/Soc Anesthesia Reaction: No 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 Eyes: Pupils equally reactive, EOM intact ENT: Moist mucous membranes Neck: Supple, no lymphadenopathy Respiratory: Lungs clear bilaterally, no distress Cardiovascular: RRR, no murmurs, rubs, or gallops Abdominal: Soft, protuberant with significant pannus : Deferred MSK: No edema, no unilateral swelling, 5/5 strength, LUE PICC in place, well appearing Neurologic: Alert and oriented, moving all extremities, normal speech, no focal weakness, no cerebellar signs Skin: No rash Psych: labile mood Result Diagram: 11/06/16 1750 11/06/16 1750 Results 24 hrs Laboratory Tests Test 11/06/16 17:50 Activated Partial Thromboplast Time 37.0Sec Anion Gap 11 Basophils # 0.010^3/ul Basophils % 0.3% Blood Urea Nitrogen 6mg/dl Calcium Level 8.1mg/dl Carbon Dioxide Level 24mmol/L Chloride Level 107mmol/L Creatinine 0.46mg/dl Eosinophils # 0.310^3/ul Eosinophils % 4.5% Glucose Level 104mg/dl Hematocrit 29.0% Hemoglobin 9.1g/dl INR International Normalized Ratio 1.21 Lymphocytes # 1.210^3/ul Lymphocytes % 19.6% Mean Corpuscular Hemoglobin 27.3pg Mean Corpuscular Hemoglobin Concent 31.4g/dl Mean Corpuscular Volume 87.1fl Mean Platelet Volume 9.8fl Monocytes # 0.410^3/ul Monocytes % 7.3% Neutrophils # 4.110^3/ul Neutrophils % 68.0% Nucleated Red Blood Cells # 0.010^3/ul Nucleated Red Blood Cells % 0.0/100WBC Platelet Count 9710^3/UL Potassium Level 3.9mmol/L Prothrombin Time 15.4Sec Prothrombin Time Ratio 1.2 Red Blood Count 3.3310^6/ul Red Cell Distribution Width 15.3% Sodium Level 138mmol/L White Blood Count 6.110^3/ul Current Medications Medications (Trade) Dose Ordered Sig/Maryse Route PRN Reason Start Time Stop Time Status Last Admin Dose Admin Sodium Chloride (NS) 1,000 ml @ 1,000 mls/hr Q1H STAT IV 11/06/16 17:24 11/06/16 18:23 DC 11/06/16 17:51 Hydromorphone HCl (Dilaudid) 1 mg ONCE STAT IV 11/06/16 17:24 11/06/16 17:26 DC 11/06/16 17:51 Ondansetron HCl (Zofran Inj) 4 mg ONCE STAT IV 11/06/16 17:24 11/06/16 17:26 DC 11/06/16 17:51 Lorazepam (Ativan) 1 mg ONCE ONCE IV 11/06/16 17:30 11/06/16 17:31 DC 11/06/16 17:51 IV Flush 10 ml 10 ml STK-MED ONCE .ROUTE 11/06/16 18:25 11/06/16 18:26 DC 11/06/16 18:53 Sodium Chloride (NS) 100 ml @ ud STK-MED ONCE .ROUTE 11/06/16 18:25 11/06/16 18:26 DC 11/06/16 18:57 Iohexol (Omnipaque 300mg/ ml) 150 ml STK-MED ONCE .ROUTE 11/06/16 18:25 11/06/16 18:26 DC 11/06/16 18:57 Procedures/MDM EKG, MONITORS, & DIAGNOSTIC IMAGING: CT abdomen and pelvis with contrast IMPRESSION: Skin thickening and soft tissue stranding in subcutaneous fat anterior inferior aspect of anterior pelvic pannus increased compared to previous study suggestive of inflammation. Cholelithiasis again seen. Trace right pleural fluid appearing since previous study. Cirrhosis again seen. Splenomegaly with the vertical length of the spleen 16.7 cm which appears increased compared to previous study. 2.4 cm calculus in right renal pelvis again seen. Mild nonspecific soft tissue stranding in mesentery again seen. Please see above. LAB INTERPRETATION: No leukocytosis MEDICAL DECISION MAKING: The patient presents with lumbar back pain and buttock pain status post debridement secondary to Damián gangrene. The patient also has chronic back pain. The patient's low back pain is unlikely related to serious etiology. The patient exhibits no clinical signs or symptoms and has no history or risk factors to suggest cauda equina, cord compression, epidural abscess, epidural hematoma, acute aortic aneurysm or dissection. The patient has a labile mood is yelling and screaming and has a history of chronic pain. I am most concerned that her presentation today is consistent with acute on chronic pain. The patient also has some social issues at home. However, given the patient's recent infection status post drainage I do need to evaluate for possible progression of disease process or wound infection. The patient will benefit from basic lab work, CT imaging of the abdomen and pelvis to rule out abscess or extension of wound. The patient will receive pain medication, anxiolysis. ER COURSE: The patient's pain and symptoms are improved with pain medication and anxiolysis. The patient's CT does show inflammation of the pannus but this is not consistent with complication of her surgical intervention. This is most likely inflammation rather than cellulitis. The patient is on appropriate antibiotics her pain is well controlled, she has multiple family members at home to help care for activities of daily living. The patient is safe for outpatient management and close primary care follow-up. I kept the patient and/or family informed of laboratory and diagnostic imaging results throughout the emergency room course. DISPOSITION PLAN: We discussed follow up with the patient's primary care doctor within 24 to 48 hours as needed. We also discussed return to the emergency room for worsening symptoms or worsening condition. Discharge Medications: The patient has OxyContin at home Departure Diagnosis: Primary Impression: Low back strain Encounter type: initial encounter Qualified Code: S39.012A - Low back strain , initial encounter Additional Impressions: Chronic pain Chronic pain type: other chronic pain Qualified Code: G89.29 - Other chronic pain Morbid obesity Obesity type: unspecified obesity type Qualified Code: E66.01 - Morbid obesity, unspecified obesity type Condition: BETSY Lee MD Nov 06, 2016 17:42
[2016-11-06 18:00] LABS: ABNORMAL IP MESSAGE 1; BASOPHILS % 0.3 % (0.0-2.0); EOSINOPHILS # 0.3 10^3/ul (0.0-0.5); EOSINOPHILS % 4.5 % (0.0-7.0); HEMOGLOBIN 9.1 g/dl (12.0-16.0); LYMPHOCYTES # 1.2 10^3/ul (0.8-2.9); LYMPHOCYTES % 19.6 % (15.0-51.0); MEAN CORPUSCULAR HEMOGLOBIN 27.3 pg (29.0-33.0); MEAN CORPUSCULAR HGB CONC 31.4 g/dl (32.0-37.0); MEAN CORPUSCULAR VOLUME 87.1 fl (82.0-101.0); MEAN PLATELET VOLUME 9.8 fl (7.4-10.4); MONOCYTE # 0.4 10^3/ul (0.3-0.9); MONOCYTES % 7.3 % (0.0-11.0); NEUTROPHIL # 4.1 10^3/ul (1.6-7.5); PLATELET COUNT 97 10^3/UL (140-415); RED BLOOD COUNT 3.33 10^6/ul (4.20-5.40); RED CELL DISTRIBUTION WIDTH 15.3 % (11.5-14.5); WHITE BLOOD COUNT 6.1 10^3/ul (4.8-10.8)
[2016-11-06 18:10] LABS: POTASSIUM 3.9 mmol/L (3.5-5.1)
[2016-11-06 18:11] LABS: ADD SCAN DIFF YES; INR 1.21; PROTIME 15.4 Sec (12.2-14.2); PT RATIO 1.2
[2016-11-06 18:13] LABS: CREATININE 0.46 mg/dl (0.44-1.00)
[2016-11-06 18:14] LABS: CALCIUM 8.1 mg/dl (8.4-10.2)
[2016-11-06] MEDS ORDERED: IOHEXOL 300MG/ML 150 ML BTL ONE (18:25)
[2016-11-06] MEDS ORDERED: SOD CHLORIDE 0.9% 100 ML ONE (18:25)
--- NOTE | 2016-11-06 19:28 | RADRPT ---
PROCEDURE: CT Abdomen and Pelvis with contrast. CLINICAL INDICATION: Abdominal pain , back pain TECHNIQUE: CT scan of the abdomen and pelvis with contrast was performed on a multidetector high-r Casacandaolution CT scanner. 100 cc of Omnipaque-300 was injected intravenously. No oral contrast was admi nistered. Coronal and sagittal reformatted images were obtained from the axial source images. Images were reviewed on a high-resolution PACS workstation. The total exam CTDI equals 23.14 mGy and the total exam DLP equals 1448.19 mGy-cm. One or more of the following dose reduction techniques were used: - Automated exposure control. - Adjustment of the mA and/or kV according to patient size. - Use of iterative reconstruction technique. COMPARISON: 10/28/2016 FINDINGS: Lungs: Mild dependent atelectasis is seen in the posterior lower lungs. Linear atelectasis/fibrosis is seen at the lung bases. Trace right pleural fluid appearing since previous study. Liver: Cirrhosis again seen. Gallbladder: Cholelithiasis again seen. Spleen: Splenomegaly with the vertical length of the spleen 16.7 cm which appears increased compared to previous study. Stomach: The stomach is not fully distended. No gross abnormality seen. Pancreas: No abnormality seen. Adrenals: No abnormality seen. Kidneys: 2.4 cm calculus in right renal pelvis again seen. 2.3 cm right upper to mid renal cyst. No abnormality seen in the left kidney. Abdominal aorta: No aneurysm seen. Atherosclerotic calcification is seen. Calcification in superio r mesenteric artery. Lymph nodes: No enlarged lymph nodes are seen. Small bowel: No dilated small bowel loops are seen. Colon: Several diverticula in sigmoid colon. There is no specific evidence of acute diverticulitis seen. Appendix: No abnormality seen. Bladder: No abnormality seen Pelvic organs: No abnormality seen Ascites: None seen. Mild nonspecific soft tissue stranding in the mesentery again seen. Osseous structures: Lumbar spondylosis. Spinal stenosis in lumbar spine. Degenerative changes at sa croiliac joints and hips. Skin thickening and soft tissue stranding in subcutaneous fat anterior inferior aspect of anterior p elvic pannus increased compared to previous study suggestive of inflammation. Mild subcutaneous david a posteriorly and anteriorly again seen. IMPRESSION: Skin thickening and soft tissue stranding in subcutaneous fat anterior inferior aspect of anterior p elvic pannus increased compared to previous study suggestive of inflammation. Cholelithiasis again s een. Trace right pleural fluid appearing since previous study. Cirrhosis again seen. Splenomegaly w ith the vertical length of the spleen 16.7 cm which appears increased compared to previous study. 2. 4 cm calculus in right renal pelvis again seen. Mild nonspecific soft tissue stranding in mesentery again seen. Please see above. RPTAT: HJES .Aswhin Samano MD, MD Date Time Electronically viewed and signed by .Ashwin Samano MD, on 11/06/2016 19:28 .S/
[2016-11-07 00:30] VITALS: BP 111/63; PULSE 95; RESP 20
== END 2016-11-07 00:30 | disposition home or self-care (01) ==
LOC: E/R 17:14
DX: S39.012A Strain of muscle, fascia and tendon of lower back, initial encounter (principal); G89.29 Other chronic pain; E66.01 Morbid (severe) obesity due to excess calories; I10 Essential (primary) hypertension; J45.909 Unspecified asthma, uncomplicated; E11.9 Type 2 diabetes mellitus without complications; X58.XXXA Exposure to other specified factors, initial encounter; Y92.9 Unspecified place or not applicable; Z68.45 Body mass index [BMI] 70 or greater, adult; Z79.84 Long term (current) use of oral hypoglycemic drugs
CPT/HCPCS: 74177; 80048; 85025; 85610; 85730; J1170; J2060; J2405; J7030; Q9967; Z7610; 36415; 96374; 96375

== ENCOUNTER 2016-11-26 10:43 | Emergency (ER) | payer OTHER ==
[~2016-11-26] VITALS: Ht 165.1 cm; Wt 152.7 kg
[2016-11-26 10:46] VITALS: Ht 165.1 cm; Wt 152.7 kg
[2016-11-26] MEDS ORDERED: LIDOCAINE 1% (MDV) 20 ML INJ SC ONE (13:00)
[2016-11-26 13:41] VITALS: BP 115/101; PULSE 99; RESP 23
[2016-11-26 13:42] LABS: ADD SCAN DIFF NO
[2016-11-26 13:44] LABS: ABNORMAL IP MESSAGE 1; BASOPHILS % 1.1 % (0.0-2.0); EOSINOPHILS # 0.2 10^3/ul (0.0-0.5); HEMATOCRIT 32.6 % (37.0-47.0); LYMPHOCYTES # 1.4 10^3/ul (0.8-2.9); LYMPHOCYTES % 36.2 % (15.0-51.0); MEAN CORPUSCULAR HEMOGLOBIN 27.2 pg (29.0-33.0); MEAN CORPUSCULAR HGB CONC 30.7 g/dl (32.0-37.0); MEAN CORPUSCULAR VOLUME 88.6 fl (82.0-101.0); MEAN PLATELET VOLUME 9.2 fl (7.4-10.4); MONOCYTE # 0.3 10^3/ul (0.3-0.9); MONOCYTES % 7.7 % (0.0-11.0); NEUTROPHIL # 1.9 10^3/ul (1.6-7.5); PLATELET COUNT 97 10^3/UL (140-415); RED BLOOD COUNT 3.68 10^6/ul (4.20-5.40); RED CELL DISTRIBUTION WIDTH 18.5 % (11.5-14.5); WHITE BLOOD COUNT 3.8 10^3/ul (4.8-10.8)
[2016-11-26 13:52] LABS: ALBUMIN 2.8 g/dl (3.3-4.9)
[2016-11-26 13:53] LABS: POTASSIUM 3.9 mmol/L (3.5-5.1)
[2016-11-26 13:54] LABS: INR 1.34; PROTIME 16.7 Sec (12.2-14.2); PT RATIO 1.3
[2016-11-26 13:55] LABS: ALBUMIN/GLOBULIN RATIO 0.6; BILIRUBIN,INDIRECT 0.5 mg/dl (0-1.1); BILIRUBIN,TOTAL 0.5 mg/dl (0.2-1.3); CREATININE 0.51 mg/dl (0.44-1.00); PARTIAL THROMBOPLASTIN TIME 35.7 Sec (25.0-35.0); TOTAL PROTEIN 7.4 g/dl (6.1-8.1)
[2016-11-26 13:56] LABS: CALCIUM 8.5 mg/dl (8.4-10.2)
--- NOTE | 2016-11-26 19:32 | ERD ---
ER Documentation Chief Complaint Date/Time DATE: 11/26/16 TIME: 19:21 Chief Complaint SENT BY HOME HEALTH SERVICE FOR PICC LINE EVALUATION AND REPLACEMENT HPI This is a 61-year-old female with a known history of a vulvar wound infection with for Damián gangrene which was drained at [facility] initially on 10/04/2016. The patient was seen by the infectious disease physician and the patient is currently receiving IV amikacin which was susceptible to the bacterial that grew on her wound cultures. The patient stated that she had been subsequently seen at [facility] where a midline intravenous device had been placed in her right upper extremity. Her home health care nurse comes on a daily basis to place her IV antibiotics. The patient indicates that when her home health care nurse came today to administer the antibiotics she was unfamiliar with how to use the midline and was concerned of possible clotting given that there was no blood return. The patient denies any fever shaking or chills. She states there is been no purulent drainage from the valvular wound. She denies any shortness of breath at rest or exertion. She denies any pain of her upper or lower extremities and no swelling of her right upper extremity. ROS All systems reviewed and are negative except as per history of present illness. Medications Home Meds Active Scripts Nystatin* (Nystop*) 15 Gm Powder, 1 APPLIC TOP BID, #60 1 Refill Prov:KAILYN YOON S. 10/28/16 Lactulose* (Cephulac*) 20 Gm/30 Ml Soln, 20 GM PO DAILY for 30 Days Prov:KAILYN YOON S. 10/28/16 Zinc Sulfate* (Zinc Sulfate*) 220 Mg Cap, 220 MG PO DAILY for 30 Days, CAP Prov:NORBERTOTAMEKAATITO M. 10/19/16 Multivitamins* (Theragran*) 1 Tab Tab, 1 TAB PO DAILY for 30 Days, TAB 1 Refill Prov:NORBERTOJUAN FRANCISCOO M. 10/19/16 Lactobacillus Acidophilus* (Lactinex*) 1 Tab Chew, 1 TAB PO BID for 30 Days, TAB Prov:NORBERTOEMELY M. 10/19/16 Docusate Sodium* (Colace*) 100 Mg Capsule, 100 MG PO Q12 for 30 Days, CAP Prov:NORBERTOEMELY M. 10/19/16 Famotidine* (Famotidine*) 20 Mg Tablet, 20 MG PO BID for 30 Days, TAB Prov:EMELY THORNTON. 10/19/16 Losartan Potassium* (Cozaar*) 25 Mg Tablet, 25 MG PO DAILY for 30 Days, TAB 1 Refill Prov:EMELY THORNTON. 10/19/16 Sennosides* (Senna Lax*) 8.6 Mg Tablet, 2 TAB PO BID for 30 Days, TAB 1 Refill Prov:EMELY THORNTON. 10/19/16 Reported Medications Metformin* (Glucophage*) 500 Mg Tab, 500 MG PO BID, TAB 03/21/15 Lorazepam* (Ativan*) 2 Mg Tablet, 2 MG PO BID Y for ANXIETY, TAB 03/21/15 Esomeprazole Mag Trihydrate (Nexium) 40 Mg Capsule.dr, 40 MG PO DAILY, CAP 03/21/15 Discontinued Scripts [Amikacin Iv Per Pharmacy] 1 EA EACH No Conflict Check, 0 EA XX NOTE Prov:KAILYN YOON S. 10/28/16 Levofloxacin* (Levaquin*) 750 Mg Tablet, 750 MG PO DAILY@06 for 28 Days, #28 TAB Prov:KAILYN YOON S. 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 Well-nourished. HEENT:Normocephalic. Atraumatic.Pupils were equal round reactive to light. Moist mucous membranes.No tonsillar exudates. Neck: No nuchal rigidity. No lymphadenopathy. No posterior cervical spine tenderness or step-offs. Respiratory: Not using accessory muscles of respiration.Lungs were clear to auscultation bilaterally. No rhonchi. No rales. No wheezing. Cardiovascular: Regular rate regular rhythm.No murmurs. No rubs were appreciated.S1, S2 normal. Distal pulses are palpable 2+ bilaterally. GI: Abdomen was obese so exam is limited due to body habitus. Nontender. Non Distended. No pulsatile abdominal masses or bruits. No rebound. No guarding. Bowel sounds were present and normal. Muscle skeletal: Full range of motion of both the upper and lower extremities bilaterally.Normal muscle tone.No assymetrical calf tenderness or swelling. Skin: No petechia, no purpura. No lesions on the palms or the soles of the feet. No maculopapular rash. Patient's wound of the left buttocks that extended into the valvular region was still present with no surrounding subcutaneous emphysema or purulent drainage. Midline was present in the right upper extremity with no surrounding erythema warmth tenderness fluctuance or induration NEURO: Patient was alert, awake, orientated x3.No facial droop. Patient is difficulty ambulating due to morbid obesity therefore uses a wheelchair so gait not observed and speech had regular rate and rhythm. No focal neurological deficits. Result Diagram: 11/26/16 1325 11/26/16 1325 Results 24 hrs Laboratory Tests Test 11/26/16 13:25 Activated Partial Thromboplast Time 35.7Sec Alanine Aminotransferase (ALT/SGPT) 28IU/L Albumin 2.8g/dl Albumin/Globulin Ratio 0.60 Alkaline Phosphatase 74IU/L Anion Gap 14 Aspartate Amino Transf (AST/SGOT) 48IU/L Basophils # 0.010^3/ul Basophils % 1.1% Blood Urea Nitrogen 5mg/dl Calcium Level 8.5mg/dl Carbon Dioxide Level 27mmol/L Chloride Level 105mmol/L Creatinine 0.51mg/dl Direct Bilirubin 0.00mg/dl Eosinophils # 0.210^3/ul Eosinophils % 4.0% Globulin 4.60g/dl Glucose Level 116mg/dl Hematocrit 32.6% Hemoglobin 10.0g/dl INR International Normalized Ratio 1.34 Indirect Bilirubin 0.5mg/dl Lymphocytes # 1.410^3/ul Lymphocytes % 36.2% Mean Corpuscular Hemoglobin 27.2pg Mean Corpuscular Hemoglobin Concent 30.7g/dl Mean Corpuscular Volume 88.6fl Mean Platelet Volume 9.2fl Monocytes # 0.310^3/ul Monocytes % 7.7% Neutrophils # 1.910^3/ul Neutrophils % 51.0% Nucleated Red Blood Cells # 0.010^3/ul Nucleated Red Blood Cells % 0.0/100WBC Platelet Count 9710^3/UL Potassium Level 3.9mmol/L Prothrombin Time 16.7Sec Prothrombin Time Ratio 1.3 Red Blood Count 3.6810^6/ul Red Cell Distribution Width 18.5% Sodium Level 142mmol/L Total Bilirubin 0.5mg/dl Total Protein 7.4g/dl White Blood Count 3.810^3/ul Current Medications Medications (Trade) Dose Ordered Sig/Maryse Route PRN Reason Start Time Stop Time Status Last Admin Dose Admin Lidocaine (Xylocaine 1% (Mdv) 20 ml) 20 ml ONCE ONCE SC 11/26/16 13:00 11/26/16 13:01 DC Procedures/MDM This patient presented to the emergency department with concerns of malfunctioning of her midline. Both myself and nursing staff were able to flush the midline easily without any difficulty. The patient was afebrile with no leukocytosis or electrolyte abnormalities. The PICC line nurse, Gabriela, kindly came to the bedside to also evaluate the patient. Both myself on Gabriela explained to the patient that the midline functions differently than a PICC line and blood flow return does not occur with the midline. We spoke on the phone with the patient's home health care nurse to indicate that this was functioning properly and therefore it was not necessary at this time to replace the midline and there is no evidence of surrounding infection or compartment syndrome or necrotizing fasciitis. The patient stated she did not want a dose of IV antibiotics in the emergency department she would prefer to have her home health care nurse administer them tomorrow. The patient was discharged home in fair condition. They were instructed to return to the emergency department at any time if there was any worsening of their condition. The patient stated they would follow up with their PCP in the next 24-48 hours to initiate a suitable medication regimen under the care of their PCP as well as to allow their PCP to monitor any drug reactions. The patient was discharged home with prescriptions after they gave informed consent to the new medication. They were also fully informed by myself on the adverse effects and adverse drug interactions in order to provide adequate safeguards to prevent possible adverse reactions to medications. Departure Diagnosis: Primary Impression: Complication of intravascular catheter Encounter type: initial encounter Qualified Code: T82.9XXA - Complication of intravascular catheter, initial encounter Condition: Fair Patient Instructions: Picc Line Care Referrals: EDIL JONAS (PCP) GILDARDO ARTHUR Nov 26, 2016 19:32
== END 2016-11-26 14:53 | disposition home or self-care (01) ==
LOC: E/R 10:43
DX: T82.9XXA Unspecified complication of cardiac and vascular prosthetic device, implant and graft, initial encounter (principal); E11.9 Type 2 diabetes mellitus without complications; I10 Essential (primary) hypertension; J45.909 Unspecified asthma, uncomplicated; E66.01 Morbid (severe) obesity due to excess calories; Y62.9 Failure of sterile precautions during unspecified surgical and medical care; Z79.84 Long term (current) use of oral hypoglycemic drugs; Z68.43 Body mass index [BMI] 50.0-59.9, adult
CPT/HCPCS: 80053; 85025; 85610; 85730; Z7502; 99283

== ENCOUNTER 2016-12-11 09:47 | Emergency (ER) | payer OTHER ==
[~2016-12-11] VITALS: Wt 133.6 kg
[~2016-12-11 09:47] MED LIST changes: -Amikacin Iv Per Pharmacy XX; -LEVO750T25 PO
--- NOTE | 2016-12-11 15:53 | ERD ---
ER Documentation Chief Complaint Date/Time DATE: 12/11/16 TIME: 15:52 Chief Complaint her for piccline removal. no bleeding noted. no distress HPI Patient is a 61-year-old female with diabetes who presents saying that she wants her PICC line removed. Talk with her at actually a midline that she has a not a true PICC line. She said that she no longer needs antibiotics and she is taking antibiotics by mouth at this time. She has had this midline placed 3 weeks ago. Her primary doctor is Dr. Morocho and he saw in the office today and sent her to the emergency department to have this removed. She has no other complaints. ROS All systems reviewed and are negative except as per history of present illness. Medications Home Meds Active Scripts Nystatin* (Nystop*) 15 Gm Powder, 1 APPLIC TOP BID, #60 1 Refill Prov:KAILYN YOON S. 10/28/16 Lactulose* (Cephulac*) 20 Gm/30 Ml Soln, 20 GM PO DAILY for 30 Days Prov:KAILYN YOON S. 10/28/16 Zinc Sulfate* (Zinc Sulfate*) 220 Mg Cap, 220 MG PO DAILY for 30 Days, CAP Prov:NORBERTOEMELY Bundy M. 10/19/16 Multivitamins* (Theragran*) 1 Tab Tab, 1 TAB PO DAILY for 30 Days, TAB 1 Refill Prov:EMELY THORNTON M. 10/19/16 Lactobacillus Acidophilus* (Lactinex*) 1 Tab Chew, 1 TAB PO BID for 30 Days, TAB Prov:EMELY THORNTON M. 10/19/16 Docusate Sodium* (Colace*) 100 Mg Capsule, 100 MG PO Q12 for 30 Days, CAP Prov:NORBERTOJUAN FRANCISCOO M. 10/19/16 Famotidine* (Famotidine*) 20 Mg Tablet, 20 MG PO BID for 30 Days, TAB Prov:NORBERTOEMELY Bundy M. 10/19/16 Losartan Potassium* (Cozaar*) 25 Mg Tablet, 25 MG PO DAILY for 30 Days, TAB 1 Refill Prov:NORBERTOEMELY M. 10/19/16 Sennosides* (Senna Lax*) 8.6 Mg Tablet, 2 TAB PO BID for 30 Days, TAB 1 Refill Prov:NORBERTOEMELY M. 10/19/16 Reported Medications Metformin* (Glucophage*) 500 Mg Tab, 500 MG PO BID, TAB 03/21/15 Lorazepam* (Ativan*) 2 Mg Tablet, 2 MG PO BID Y for ANXIETY, TAB 03/21/15 Esomeprazole Mag Trihydrate (Nexium) 40 Mg Capsule.dr, 40 MG PO DAILY, CAP 03/21/15 Allergies Allergies: Coded Allergies: Penicillins (Verified Allergy, Severe, UNABLE TO BREATHE, 11/06/16) avocado (Verified Allergy, Severe, UNABLE TO BREATHE, 11/06/16) cephalexin (Verified Allergy, Severe, UNABLE TO BREATH, 11/06/16) Shellfish (Verified Allergy, Mild, 11/06/16) ampicillin (Verified Allergy, Unknown, 11/06/16) PMhx/Soc Anesthesia Reaction: No 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 Neck: Full range of motion..~ No meningismus. Resp: Clear to auscultation bilaterally Cardio: Regular rate and rhythm, no murmurs Abd: Soft, non tender, non distended. Normal bowel sounds Skin: No petechiae or rashes Back: No midline or flank tenderness Ext: No cyanosis, or edema Neur: Awake and alert Psych: Normal Mood and Affect Procedures/MDM Midline removal: I removed 2 sutures and that was easily able to pull the midline catheter out without difficulty. The catheter was removed in toto. There was no blood loss. Dressing was applied. Patient is a 61-year-old female with diabetes who presents for midline removal. I removed the midline at the bedside without difficulty. The patient will be discharged home. She can return for any worsening symptoms. Departure Diagnosis: Primary Impression: PIC line (peripherally inserted central catheter) removal Condition: Fair Patient Instructions: Picc Line Care Referrals: EDIL MOROCHO Additional Instructions: Call your primary care doctor TOMORROW for an appointment during the next 1 WEEK.Tell the paralegal legal secretary that you were referred from this facility.See the doctor sooner or return here if your condition worsens before your appointment time. ANA STRONG MD Dec 11, 2016 15:53
== END 2016-12-11 11:00 | disposition home or self-care (01) ==
LOC: FTE 09:47
DX: Z45.2 Encounter for adjustment and management of vascular access device (principal); J45.909 Unspecified asthma, uncomplicated; I10 Essential (primary) hypertension; E11.9 Type 2 diabetes mellitus without complications; Z79.84 Long term (current) use of oral hypoglycemic drugs
CPT/HCPCS: 99282